=== PATIENT | female | born 1960 | race Caucasian/White ===

== ENCOUNTER 2017-08-04 21:21 | Emergency (ER) | payer SELFPAY ==
[2017-08-04 21:28] VITALS: BP 169/96; PULSE 95; RESP 14; TEMP 36.7; O2SAT 100
--- NOTE | 2017-08-04 22:13 | PC.NURSE ---
States she was just sitting watching TV when her right upper arm started hurting
--- NOTE | 2017-08-04 22:58 | ED.UPPEXIN ---
HPI - Extremity Injury (Upper) General Chief Complaint: Extremity Injury, Upper Stated Complaint: RT SHOULDER PAIN, RADIATING DOWN TO LEG Time Seen by Provider: 08/04/17 22:58 Source: patient Mode of arrival: ambulatory Limitations: no limitations History of Present Illness HPI narrative: The patient developed atraumatic right shoulder pain at home prior to arrival. She was sitting watching TV when the pain started. The pain initially occurred in the right anterior shoulder, shooting down the right arm. She has no prior issues of trauma with the right arm right shoulder. She has no prior symptoms suggestive of carpal tunnel syndrome. She has experienced weakness in the right hand recently, almost dropping a coffee cup a few days ago. She is right-hand dominant. She has no difficulty writing. There is no confusion, visual changes or facial droop. She has no right leg weakness. She has pain, and weakness but not numbness in the right arm. Related Data Previous Rx's Medication Instructions Recorded prednisone 60 mg PO DAILY #15 tab 08/05/17 Allergies Allergy/AdvReac Type Severity Reaction Status Date / Time No Known Drug Allergies Allergy Verified 08/04/17 21:31 Review of Systems Review of Systems All systems reviewed & are unremarkable except as noted in HPI and below ENT Ears, Nose, Mouth, and Throat: Denies change in voice, Denies neck pain and Denies sore throat Cardiovascular Denies chest pain, Denies irregular heart rhythm, Denies lightheadedness, Denies palpitations, Denies dyspnea, Denies dyspnea on exertion and Denies orthopnea Respiratory Denies cough, Denies dyspnea, Denies dyspnea on exertion and Denies wheezing Musculoskeletal Reports system reviewed and no additional complaints, except as docu, Reports as per HPI and Denies neck pain Integumentary/Breasts Denies pruritus, Denies erythema, Denies rash and Denies wounds Endocrine Denies palpitations Allergic/Immunologic Denies wheezing [facility] Surgical History Status post tubal ligation (05/12/94) Social History Smoking Status: Former smoker Exam Initial Vital Signs Initial Vital Signs: Vital Signs Temperature 98.1 F 08/04/17 21:28 Pulse Rate 95 H 08/04/17 21:28 Respiratory Rate 14 08/04/17 21:28 Blood Pressure 169/96 H 08/04/17 21:28 Pulse Oximetry 100 08/04/17 21:28 Const General: healthy appearing, comfortable, well developed and well groomed [facility] Head: normocephalic and atraumatic Eyes Pupils: PERRL EOM: EOM intact bilaterally Neck Neck: normal visual inspection, full ROM and other (No palpable cervical spine tenderness.) Resp Auscultation: clear to auscultation bilaterally Cardio Rate: regular rate Rhythm: regular rhythm Heart Sounds: S1 normal, S2 normal and no murmurs Back/Spine/Pelvis Thoracic/Lumbar Spine: thoracic and lumbar spine normal to inspection, No thoracic spinal tenderness and No lumbar spinal tenderness Skin General: no rashes or lesions noted Neuro General: alert, awake and oriented x3 Motor: other (Strength 5/5 in the left arm. Strength is 4/5 in the right wrist and right hand.) Sensory Exam: no sensory deficits noted Extrem Right upper extremity: normal to inspection, full ROM, normal capillary refill, no joint enlargement and shoulder/upper arm Details: normal ROM; no tenderness and no swelling Course Hospital Course: Back exam there is no functional abnormality in the right shoulder. She does have decreased right hand and right wrist strength. Evaluation is highly suggestive of a neuropathy. She was initially treated with Motrin and prednisone. Orders Ordered: ED Orders 08/04/17 23:04 XR shoulder RT min 2V Stat Discontinued Medications Ibuprofen (Advil) 800 mg PO NOW ONE Stop: 08/04/17 23:41 Last Admin: 08/04/17 23:47 Dose: 800 mg Prednisone (Deltasone) 60 mg PO NOW ONE Stop: 08/04/17 23:41 Last Admin: 08/04/17 23:47 Dose: 60 mg Vital Signs - 8 hr 08/04/17 21:28 08/05/17 00:15 Temperature 98.1 F Pulse Rate 95 H 87 Respiratory Rate 14 18 Blood Pressure 169/96 H 145/93 H Pulse Oximetry 100 100 MDM - Extremity Injury (Upper) Imaging Data Right shoulder: Attestation: I personally reviewed and interpreted this imaging study as follows: My impression: Right shoulder x-ray is normal. Discharge Plan Departure Patient Disposition: Home, Self-Care Clinical Impression: Radiculopathy of arm Discharge Date/Time: 08/05/17 00:17 Interventions: ED Discharge Assessment Last Done: 08/05/17 00:15 Instructions: DI for Cervical Radiculopathy Activity Restrictions/Additional Instructions: Prednisone 60 mg daily for 5 days. Advil 3 tablets every 6 hr as needed for pain. Establish care with a local physician, if symptoms persist you will need nerve conduction studies. These will have to be scheduled with an office that has this capability. Return to the ER as needed. Prescriptions: New prednisone 20 mg tablet 60 mg PO DAILY Qty: 15 RF: 0
--- NOTE | 2017-08-04 23:04 | DI.RAD.S_ITS ---
PROCEDURE: XR SHOULDER RT MIN 2V INDICATIONS: Atraumatic right shoulder pain TECHNIQUE: 3 views of the shoulder were acquired. COMPARISON: None. FINDINGS: Bones: No fractures or dislocations. No suspicious bony lesions. Visualized ribs appear intact. Glenohumeral and acromioclavicular joint degenerative change. Soft tissues: No suspicious soft tissue calcifications. IMPRESSION: No acute fractures or dislocations. Dictated by: Stephan Serna M.D. on 08/05/2017 at 8:11 Approved by: Stephan Serna M.D. on 08/05/2017 at 8:16
[2017-08-04] MEDS: IBUPROFEN 400 MG TABLET 800 MG PO (23:47)
[2017-08-04] MEDS: predniSONE 20 MG TABLET 60 MG PO (23:47)
[2017-08-05 00:15] VITALS: BP 145/93; PULSE 87; RESP 18; O2SAT 100
== END 2017-08-05 00:17 | disposition home or self-care (01) ==
PROVIDERS: Emergency Provider Emergency Medicine
DX: M54.10 Radiculopathy, site unspecified (principal)
CPT/HCPCS: 73030; 99282; 99283

== ENCOUNTER 2017-08-26 12:08 | Emergency (ER) | payer SELFPAY ==
[2017-08-26 12:10] VITALS: BP 146/87; PULSE 77; RESP 18; TEMP 36.6; O2SAT 99; BMI 31.2
--- NOTE | 2017-08-26 12:29 | ED_ITS ---
HPI - Chest Pain <WILLIAM Pagan - Last Filed: 08/26/17 22:04> General Chief Complaint: Chest Pain Stated Complaint: pressure in chest, weakness Time Seen by Provider: 08/26/17 12:28 Source: patient History of Present Illness HPI narrative: 57-year-old female here for complaint of having cough and chest pressure for the past couple weeks. She reports that she has had a productive cough. She denies any fevers. She states that her symptoms started 2 weeks ago started to get better and then worsened over the past few days. She denies any chest pain but just feels the pressure. She reports she has been coughing up green phlegm. Positive p.o. intake. She is able speak full sentences. No acute distress. She was able to ambulate into the emergency room. No nausea or vomiting Related Data Previous Rx's Medication Instructions Recorded doxycycline hyclate 100 mg PO BID #14 cap 08/26/17 Allergies Allergy/AdvReac Type Severity Reaction Status Date / Time No Known Drug Allergies Allergy Verified 08/26/17 12:50 Review of Systems <WILLIAM Pagan - Last Filed: 08/26/17 22:04> Constitutional Denies chills, Denies fatigue, Denies fever(s), Denies lethargy and Denies weakness Eyes Denies change in vision, Denies eye discharge, Denies irritation and Denies loss of vision ENT Ears, Nose, Mouth, and Throat: Denies change in voice, Denies neck pain, Denies sore throat and Denies throat swelling Cardiovascular Comments: Chest pressure Respiratory Reports chest congestion and Denies wheezing Gastrointestinal Gastrointestinal: Denies abdominal pain, Denies change in bowel habits, Denies diarrhea, Denies nausea and Denies vomiting Genitourinary Denies hematuria, Denies flank pain, Denies urinary incontinence and Denies urinary urgency Musculoskeletal Denies neck pain Integumentary/Breasts Denies pruritus, Denies erythema, Denies rash and Denies wounds Neurologic Denies confusion, Denies loss of vision and Denies weakness Psychiatric Denies anxiety, Denies confusion, Denies depression, Denies homicidal ideation and Denies suicidal ideation Endocrine Denies fatigue and Denies flushing Hematologic/Lymphatic Denies easy bruising Allergic/Immunologic Denies urticaria, Denies throat swelling and Denies wheezing Exam <WILLIAM Pagan Last Filed: 08/26/17 22:04> Initial Vital Signs Initial Vital Signs: Vital Signs Temperature 97.9 F 08/26/17 12:10 Pulse Rate 77 08/26/17 12:10 Respiratory Rate 18 08/26/17 12:10 Blood Pressure 146/87 H 08/26/17 12:10 Pulse Oximetry 99 08/26/17 12:10 Const General: cooperative and well developed Nutritional Appearance: well nourished Orientation: alert, awake, oriented x3 and not confused HENKS Mouth: oral mucosae normal, oropharynx normal and moist mucous membranes Eyes Conjunctivae: conjunctivae normal Sclera: sclerae normal Pupils: PERRL EOM: EOM intact bilaterally Chest Chest: normal inspection of the chest Resp Effort & Inspection: normal respiratory effort, able to speak in complete sentences, no respiratory distress and no use of accessory muscles Auscultation: clear to auscultation bilaterally, no rales, no rhonchi and no wheezes Cardio Rate: regular rate Rhythm: regular rhythm Heart Sounds: no click, no gallops, no murmurs and no rubs Skin General: no rashes or lesions noted, No jaundice and No petechiae Neuro General: alert, oriented x3, gait normal and no focal motor deficits Speech: speech normal Extrem Right lower extremity: normal to inspection; no edema Left lower extremity: normal to inspection; no edema <Isabelle Coleman DO - Last Filed: 08/27/17 12:26> Initial Vital Signs Initial Vital Signs: Vital Signs Temperature 97.9 F 08/26/17 12:10 Pulse Rate 77 08/26/17 12:10 Respiratory Rate 18 08/26/17 12:10 Blood Pressure 146/87 H 08/26/17 12:10 Pulse Oximetry 99 08/26/17 12:10 Course <WILLIAM Pagan - Last Filed: 08/26/17 22:04> Orders Ordered: Discontinued Medications Sodium Chloride (Normal Saline 0.9%) 1,000 mls @ 150 mls/hr IV CONT ERICKSON Last Infusion: 08/26/17 14:44 Dose: 0 mls/hr Admin: 08/26/17 13:09 Dose: 150 mls/hr Vital Signs - 8 hr 08/26/17 14:05 08/26/17 14:43 08/26/17 14:45 Pulse Rate 74 77 74 Respiratory Rate 11 L 11 L 14 Blood Pressure 105/85 H Blood Pressure [Right Arm] 139/82 H 105/85 H Pulse Oximetry 98 96 100 <Isabelle Coleman DO - Last Filed: 08/27/17 12:26> Orders Ordered: Discontinued Medications Sodium Chloride (Normal Saline 0.9%) 1,000 mls @ 150 mls/hr IV CONT ERICKSON Last Infusion: 08/26/17 14:44 Dose: 0 mls/hr Admin: 08/26/17 13:09 Dose: 150 mls/hr Vital Signs - 8 hr 08/26/17 14:05 08/26/17 14:43 08/26/17 14:45 Pulse Rate 74 77 74 Respiratory Rate 11 L 11 L 14 Blood Pressure 105/85 H Blood Pressure [Right Arm] 139/82 H 105/85 H Pulse Oximetry 98 96 100 MDM - Chest Pain <WILLIAM Pagan - Last Filed: 08/26/17 22:04> Lab Data Result diagrams: 08/26/17 13:00 08/26/17 13:00 Lab Results 08/26/17 08/26/17 Range/Units 13:00 13:00 WBC 7.2 (4.5-11.0) X10^3/uL RBC 4.81 (4.0-5.2) X10^6/uL Hgb 14.7 (12.0-16.0) g/dL Hct 42.6 (36-46) % MCV 88.6 (80-100) fL MCH 30.6 (26-34) PG MCHC 34.5 (30-36) % RDW 12.2 (11.6-14.8) % Plt Count 292 (150-400) X10^3/uL Neut % (Auto) 54.2 (50-75) % Lymph % (Auto) 31.8 (25-40) % Quay % (Auto) 6.5 (3-14) % Eos % (Auto) 5.2 H (2-4) % Baso % (Auto) 2.3 H (0-2) % Neut # (Auto) 3900 (6832-7156) /uL Sodium 136 L (137-145) mmol/L Potassium 4.1 (3.4-5.1) mmol/L Chloride 98 (98-107) mmol/L Carbon Dioxide 29 (22-32) mmol/L BUN 12 (7-17) mg/dL Creatinine 0.50 L (0.52-1.04) mg/dL Estimated GFR > 60.0 (>60) mL/min BUN/Creatinine Ratio 24.0 H (6-22) Glucose 355 H (70-100) mg/dL Calcium 9.2 (8.4-10.2) mg/dL Total Bilirubin 0.5 (0.2-1.3) mg/dL AST 20 (14-36) IU/L ALT 24 (9-52) IU/L Alkaline Phosphatase 118 (38-126) U/L Total Creatine Kinase 78 (30-135) U/L Troponin I < 0.012 (0.01-0.034) ng/mL Total Protein 7.3 (6.3-8.2) g/dL Albumin 3.9 (3.5-5.0) g/dL Globulin 3.4 (1.7-4.1) g/dL Albumin/Globulin Ratio 1.1 (1.0-2.8) Imaging Data Chest x-ray: Radiologist's impression: PROCEDURE: XR CHEST 1V INDICATIONS: Chest pressure and cough TECHNIQUE: One view of the chest was acquired. COMPARISON: [facility], CHEST 2 VIEW, 06/23/2006, 17:48. FINDINGS: Surgical changes and devices: None. Lungs and pleura: No pleural effusions or pneumothorax. Lungs are clear. Mediastinum: Mediastinal contours appear normal. Heart size is normal. Bones and chest wall: No suspicious bony lesions. Overlying soft tissues appear unremarkable. IMPRESSION: No acute pulmonary process. Dictated by: Elizabeth Castorena M.D. on 08/26/2017 at 13:28 Approved by: Elizabeth Castorena M.D. on 08/26/2017 at 13:28 ECG Data Interpretation: EKG shows normal sinus rhythm no ST elevation or depression. No ectopy. Ventricular rate is 75. Pr interval 147. QRS duration 98. QTC 392 MDM Narrative Medical decision making narrative: EKG shows sinus rhythm with no ST elevation or depression. Chest x-ray was negative for any acute findings. CBC was obtained was unremarkable. CMP was obtained and shows elevated blood sugar at 355. Cardiac enzymes were obtained and were negative. Patient states she has a history of having a diabetes when she was and was told by her primary care provider years ago that she was possibly type 2 diabetic she does not take any diabetic medications at this time. Due to length of symptoms of having productive cough will treat empirically for walking pneumonia with doxycycline. She is encouraged to follow up with primary care next week for further evaluation and stabbing shooting type 2 diabetes care. For any worsening symptoms return to the emergency room. <Isabelle Coleman, DO - Last Filed: 08/27/17 12:26> Lab Data Lab Results 08/26/17 08/26/17 Range/Units 13:00 13:00 WBC 7.2 (4.5-11.0) X10^3/uL RBC 4.81 (4.0-5.2) X10^6/uL Hgb 14.7 (12.0-16.0) g/dL Hct 42.6 (36-46) % MCV 88.6 (80-100) fL MCH 30.6 (26-34) PG MCHC 34.5 (30-36) % RDW 12.2 (11.6-14.8) % Plt Count 292 (150-400) X10^3/uL Neut % (Auto) 54.2 (50-75) % Lymph % (Auto) 31.8 (25-40) % Quay % (Auto) 6.5 (3-14) % Eos % (Auto) 5.2 H (2-4) % Baso % (Auto) 2.3 H (0-2) % Neut # (Auto) 3900 (4041-7414) /uL Sodium 136 L (137-145) mmol/L Potassium 4.1 (3.4-5.1) mmol/L Chloride 98 (98-107) mmol/L Carbon Dioxide 29 (22-32) mmol/L BUN 12 (7-17) mg/dL Creatinine 0.50 L (0.52-1.04) mg/dL Estimated GFR > 60.0 (>60) mL/min BUN/Creatinine Ratio 24.0 H (6-22) Glucose 355 H (70-100) mg/dL Calcium 9.2 (8.4-10.2) mg/dL Total Bilirubin 0.5 (0.2-1.3) mg/dL AST 20 (14-36) IU/L ALT 24 (9-52) IU/L Alkaline Phosphatase 118 (38-126) U/L Total Creatine Kinase 78 (30-135) U/L Troponin I < 0.012 (0.01-0.034) ng/mL Total Protein 7.3 (6.3-8.2) g/dL Albumin 3.9 (3.5-5.0) g/dL Globulin 3.4 (1.7-4.1) g/dL Albumin/Globulin Ratio 1.1 (1.0-2.8) ECG Data Attestation: I personally reviewed and interpreted this ECG as follows: Prior ECG tracings: available for review Interpretation: Sinus rhythm rate 75 Q-waves noted in inferior leads no prior to compare no acute ST changes normal interval Discharge Plan Departure Patient Disposition: Home, Self-Care Clinical Impression: Cough, Elevated blood sugar level Discharge Date/Time: 08/26/17 14:46 Interventions: ED Discharge Assessment Last Done: 08/26/17 14:45 Instructions: Atypical Pneumonia Activity Restrictions/Additional Instructions: Laboratory results show elevated blood sugar today indicating diabetes. Otherwise laboratory results were unremarkable. EKG and chest x-ray were negative. Will treat for atypical pneumonia with an antibiotic called doxycycline use as directed. Plenty of fluids and rest. [id number] Tylenol Motrin as needed for any discomfort. Follow up with primary care provider next week for re-evaluation and establishment of care for type 2 diabetes. For any worsening symptoms return to the emergency room. Prescription electronically sent to [facility] Prescriptions: New doxycycline hyclate 100 mg capsule 100 mg PO BID Qty: 14 RF: 0 Referrals: [facility] [Provider Group] Stand Alone Forms: Work/School Restrictions <Isabelle Coleman DO - Last Filed: 08/27/17 12:26> Cosign ED Attending Andrzej Attestation: I was immediately available in the department for consultation. Documentation has been reviewed. I agree with assessment and plan.
--- NOTE | 2017-08-26 12:36 | DI.RAD.S_ITS ---
PROCEDURE: XR CHEST 1V INDICATIONS: Chest pressure and cough TECHNIQUE: One view of the chest was acquired. COMPARISON: [facility], , CHEST 2 VIEW, 06/23/2006, 17:48. FINDINGS: Surgical changes and devices: None. Lungs and pleura: No pleural effusions or pneumothorax. Lungs are clear. Mediastinum: Mediastinal contours appear normal. Heart size is normal. Bones and chest wall: No suspicious bony lesions. Overlying soft tissues appear unremarkable. IMPRESSION: No acute pulmonary process. Dictated by: Elizabeth Castorena M.D. on 08/26/2017 at 13:28 Approved by: Elizabeth Castorena M.D. on 08/26/2017 at 13:28
[2017-08-26 13:06] VITALS: BP 140/87; PULSE 73; RESP 15; O2SAT 97
[2017-08-26] MEDS: SODIUM CHLORIDE 0.9% 1,000 ML 150 ML IV (13:09)
[2017-08-26 13:12] LABS: Add Manual Diff / Slide Review NO; Basophils Percent Auto 2.3 % (0-2); Eosinophils Percent Auto 5.2 % (2-4); Hematocrit 42.6 % (36-46); Hemoglobin 14.7 g/dL (12.0-16.0); Lymphocytes Percent Auto 31.8 % (25-40); Mean Corpuscular HGB Conc 34.5 % (30-36); Mean Corpuscular Hemoglobin 30.6 PG (26-34); Mean Corpuscular Volume 88.6 fL (80-100); Monocytes Percent Auto 6.5 % (3-14); Neutrophils Absolute Auto 3900 /uL (3000-5900); Neutrophils Percent Auto 54.2 % (50-75); Platelet Count 292 X10^3/uL (150-400); Red Blood Cell Count 4.81 X10^6/uL (4.0-5.2); Red Cell Distribution Width 12.2 % (11.6-14.8); White Blood Cell Count 7.2 X10^3/uL (4.5-11.0)
[2017-08-26 13:29] LABS: Alanine Aminotransferase 24 IU/L (9-52); Albumin 3.9 g/dL (3.5-5.0); Albumin Globulin Ratio 1.1 (1.0-2.8); Alkaline Phosphatase 118 U/L (38-126); Aspartate Aminotransferase 20 IU/L (14-36); Bilirubin Total 0.5 mg/dL (0.2-1.3); Blood Urea Nitrogen 12 mg/dL (7-17); Calcium 9.2 mg/dL (8.4-10.2); Carbon Dioxide 29 mmol/L (22-32); Chloride 98 mmol/L (98-107); Creatine Kinase 78 U/L (30-135); Estimated Glomerular Filt Rate > 60.0 mL/min (>60); Globulin 3.4 g/dL (1.7-4.1); Glucose 355 mg/dL (70-100); HEMOLYSIS 19 (0-50); Potassium 4.1 mmol/L (3.4-5.1); Sodium 136 mmol/L (137-145); Total Protein 7.3 g/dL (6.3-8.2)
[2017-08-26 13:30] VITALS: BP 149/86; PULSE 76; RESP 15; O2SAT 95
[2017-08-26 13:42] LABS: Troponin I < 0.012 ng/mL (0.01-0.034)
[2017-08-26 14:05] VITALS: BP 139/82; PULSE 74; RESP 11; O2SAT 98
[2017-08-26 14:43] VITALS: BP 105/85; PULSE 77; RESP 11; O2SAT 96
[2017-08-26 14:45] VITALS: BP 105/85; PULSE 74; RESP 14; O2SAT 100
== END 2017-08-26 14:46 | disposition home or self-care (01) ==
PROVIDERS: Emergency Provider Nurse Practitioner Family
DX: R05 Cough (principal); R73.9 Hyperglycemia, unspecified
CPT/HCPCS: 36591; 71045; 80053; 82550; 82553; 84484; 85025; 93005; 96360; 96361; 99283; 99285

== ENCOUNTER 2019-03-15 12:42 | Emergency (ER) | payer SELFPAY ==
[2019-03-15 12:46] VITALS: BP 160/98; PULSE 83; RESP 18; TEMP 36.7; O2SAT 100
[2019-03-15 13:09] VITALS: BP 148/82; PULSE 77; RESP 20; O2SAT 97
[2019-03-15] MEDS: SODIUM CHLORIDE 0.9% 1,000 ML 1000 ML IV (13:35)
[2019-03-15 13:39] LABS: Add Manual Diff / Slide Review NO; Basophils Absolute Auto 100 /uL (0-100); Basophils Percent Auto 1.4 % (0-2); Eosinophils Absolute Auto 300 /uL (0-450); Eosinophils Percent Auto 4.1 % (2-4); Hematocrit 41.9 % (36-46); Hemoglobin 14.7 g/dL (12.0-16.0); Lymphocytes Absolute Auto 2000 /uL (1100-4500); Lymphocytes Percent Auto 24.3 % (25-40); Mean Corpuscular HGB Conc 35.2 % (30-36); Mean Corpuscular Hemoglobin 30.5 PG (26-34); Mean Corpuscular Volume 86.7 fL (80-100); Monocytes Absolute Auto 400 /uL (0-900); Monocytes Percent Auto 5.4 % (3-14); Neutrophils Absolute Auto 5400 /uL (1500-7000); Neutrophils Percent Auto 64.8 % (50-75); Platelet Count 341 X10^3/uL (150-400); Red Blood Cell Count 4.83 X10^6/uL (4.0-5.2); Red Cell Distribution Width 12.4 % (11.6-14.8); White Blood Cell Count 8.3 X10^3/uL (4.5-11.0)
[2019-03-15 13:43] LABS: Prothrombin Time 11.7 SECONDS (10.1-12.7)
[2019-03-15 13:46] LABS: PTT Partial Thromboplastin Tim 31 SECONDS (26.4-36.2)
[2019-03-15 13:49] LABS: Creatine Kinase 77 U/L (30-135)
[2019-03-15 13:50] LABS: Alanine Aminotransferase 26 IU/L (<35); Albumin 4.4 g/dL (3.5-5.0); Albumin Globulin Ratio 1.2 (1.0-2.8); Alkaline Phosphatase 117 U/L (38-126); Aspartate Aminotransferase 33 IU/L (14-36); Bilirubin Total 0.7 mg/dL (0.2-1.3); Blood Urea Nitrogen 15 mg/dL (7-17); Calcium 9.7 mg/dL (8.4-10.2); Carbon Dioxide 28 mmol/L (22-32); Chloride 97 mmol/L (98-107); Estimated Glomerular Filt Rate > 60.0 mL/min (>60); Globulin 3.6 g/dL (1.7-4.1); Glucose 349 mg/dL (70-100); HEMOLYSIS 45 (0-50); Lipase 66 U/L (23-300); Potassium 4.1 mmol/L (3.4-5.1); Sodium 135 mmol/L (137-145)
[2019-03-15 14:01] LABS: Troponin I < 0.012 ng/mL (0.01-0.034)
[2019-03-15 14:36] LABS: RBC Urine None Seen (0-5/HPF)
[2019-03-15 14:44] LABS: Bacteria Urine Moderate (10-30); Culture Indicated Urine Specimen Cultured; Squamous Epithelial Cell Urine 0-1 /HPF (0-5/HPF); WBC Urine 5-10/HPF (0-5/HPF)
[2019-03-15 15:06] VITALS: BP 177/95; PULSE 75; RESP 11; O2SAT 97
[2019-03-15 15:07] LABS: Thyroid Stimulating Hormone 1.06 uIU/mL (0.47-4.68)
[2019-03-15 15:17] VITALS: BP 176/101; BP 177/100; BP 178/101; PULSE 77; PULSE 80; PULSE 82
[2019-03-15 16:03] VITALS: BP 160/96; PULSE 81; RESP 18
--- NOTE | 2019-03-15 16:04 | PC.NURSE ---
pt requesting to leave, dr Edwards is aware
[2019-03-15] MEDS: levoFLOXacin 250 MG TABLET 500 MG PO (16:11)
--- NOTE | 2019-03-15 22:22 | ED.WEAKNESS ---
HPI - Weakness General Chief complaint: Weakness Stated complaint: feeling off, fingers tingle, slight confusion Time Seen by Provider: 03/15/19 14:01 Source: patient Mode of arrival: Wheelchair History of Present Illness HPI Narrative: The patient is a 51-year-old female who presented to the emergency department with vague random complaints. She states that she woke up feeling fine and when she went to work she suddenly became dizzy lightheaded and felt almost like she might pass out without palpitations, or chest pain. She kept stating I just didn't feel right but couldn't define exactly what was wrong. She denied being dizzy or her balance being off. She denied absolutely any pain. She denied any headache chest pain. She denies any fever chills or sweats any numbness tingling loss of sensation paresthesias or anesthesia. She denied any change in vision loss of vision double vision. She does have some mild nasal drainage and sinus congestion without a sore throat. She has had no shortness of breath cough, abdominal pain, nausea vomiting diarrhea change in bowel habits. She denies any urinary symptoms. She denied being depressed and anxious. The patient when asked if she had lost weight stated that over the last 6 months she has lost weight without trying. She has difficulty sleeping at night. She states that her dress size 1 from 18-12. Related Data Previous Rx's Medication Instructions Recorded levofloxacin [Levaquin] 500 mg PO DAILY #7 tab 03/15/19 Allergies Allergy/AdvReac Type Severity Reaction Status Date / Time No Known Drug Allergies Allergy Verified 03/15/19 12:49 Review of Systems Review of Systems Narrative: All review of systems were negative except for those mentioned in history of present illness. Patient History Surgical History (Updated 03/15/19 @ 22:34 by Fracisco Edwards MD) History of tonsillectomy and adenoidectomy (Acute) Status post tubal ligation (05/12/94) Social History (Updated 03/15/19 @ 22:30 by Fracisco Edwards MD) other: Former smoker, does not drink alcohol or use any drugs Smoking Status: Former smoker Smoking Status: Former smoker alcohol intake frequency: 0-2 drinks per day Substance Use Type: does not use Exam Narrative Exam Narrative: PHYSICAL EXAM: CONSTITUTIONAL: Awake, blunted flat affect in NAD. Does not appear toxic or ill. The patient actually appears depressed. HEAD: AT/NC EENT: PERRL, FROM of eyes, no discharge, no nystagmus No epistaxis or nasal drainage Oral mucosa is moist and pink, posterior pharynx is without erythema or exudate. NECK: Supple, no obvious JVD, Trachea is midline without stridor, no palpable LN or masses. SPINE: No gross deformity, no palpable tenderness of the cervical, thoracic, lumbar or sacral spine. No CVA tenderness. THORAX: No deformity, retractions, chest wall tenderness, subcutaneous air or crepitice. LUNGS: Clear with symmetrical breath sounds without respiratory distress HEART: Normal heart tones, regular rhythm and rate without murmur. ABDOMEN: Soft, non-tender, normal bowel sounds without guarding, rebound, rigidity or palpable mass or organomegaly. EXTREMITIES: No edema, cyanosis, deformity or tenderness. SKIN: No rash, bruising, petechiae or purpura. NEURO: Awake, alert, oriented, conversive, cranial nerves II-XII are symmetrical and normal, moves all 4 extremities and is ambulatory Initial Vital Signs Initial Vital Signs: Vital Signs Temperature 98.1 F 03/15/19 12:46 Pulse Rate 83 03/15/19 12:46 Respiratory Rate 18 03/15/19 12:46 Blood Pressure 160/98 H 03/15/19 12:46 Pulse Oximetry 100 03/15/19 12:46 Course Orders Ordered: ED Orders 03/15/19 14:35 Urine Culture Stat Urine Microscopic Stat Discontinued Medications Sodium Chloride (Normal Saline 0.9%) 1,000 mls @ 1,000 mls/hr IV BOLUS ONE Stop: 03/15/19 14:30 Last Infusion: 03/15/19 15:20 Dose: 0 mls/hr Documented by: Admin: 03/15/19 13:35 Dose: 1,000 mls/hr Documented by: TULIO Sodium Chloride (Normal Saline 0.9%) 1,000 mls @ 150 mls/hr IV CONT ERICKSON Last Admin: 03/15/19 15:21 Dose: Not Given Documented by: TULIO Levofloxacin (Levaquin) 500 mg PO NOW ONE Stop: 03/15/19 16:07 Last Admin: 03/15/19 16:11 Dose: 500 mg Documented by: TULIO Vital Signs Vital signs: Vital Signs - 8 hr 03/15/19 15:06 03/15/19 15:17 03/15/19 16:03 Pulse Rate 75 81 Pulse Rate [Orthostatic Lying] 80 Pulse Rate [Orthostatic Sitting] 77 Pulse Rate [Orthostatic Standing] 82 Respiratory Rate 11 L 18 Blood Pressure [Left Arm] 177/95 H 160/96 H Blood Pressure [Orthostatic Lying] 176/101 H Blood Pressure [Orthostatic Sitting] 177/100 H Blood Pressure [Orthostatic Standing] 178/101 H Pulse Oximetry 97 MDM - Weakness Medical Records Attestation: I reviewed the patient's medical records. Lab Data Attestation: I reviewed the patient's lab results. Result diagrams: 03/15/19 13:28 03/15/19 13:28 Labs: Lab Results 03/15/19 03/15/19 03/15/19 Range/Units 13:28 13:28 13:28 WBC 8.3 (4.5-11.0) X10^3/uL RBC 4.83 (4.0-5.2) X10^6/uL Hgb 14.7 (12.0-16.0) g/dL Hct 41.9 (36-46) % MCV 86.7 (80-100) fL MCH 30.5 (26-34) PG MCHC 35.2 (30-36) % RDW 12.4 (11.6-14.8) % Plt Count 341 (150-400) X10^3/uL Neut % (Auto) 64.8 (50-75) % Lymph % (Auto) 24.3 L (25-40) % [place] % (Auto) 5.4 (3-14) % Eos % (Auto) 4.1 H (2-4) % Baso % (Auto) 1.4 (0-2) % Neut # (Auto) 5400 (4674-1134) /uL Lymph # (Auto) 2000 (7805-2272) /uL [place] # (Auto) 400 (0-900) /uL Eos # (Auto) 300 (0-450) /uL Baso # (Auto) 100 (0-100) /uL PT 11.7 (10.1-12.7) SECONDS INR 1.0 (0.9-1.3) APTT 31 (26.4-36.2) SECONDS Sodium 135 L (137-145) mmol/L Potassium 4.1 (3.4-5.1) mmol/L Chloride 97 L (98-107) mmol/L Carbon Dioxide 28 (22-32) mmol/L BUN 15 (7-17) mg/dL Creatinine 0.60 (0.52-1.04) mg/dL Estimated GFR > 60.0 (>60) mL/min BUN/Creatinine Ratio 25.0 H (6-22) Glucose 349 H (70-100) mg/dL Calcium 9.7 (8.4-10.2) mg/dL Total Bilirubin 0.7 (0.2-1.3) mg/dL AST 33 (14-36) IU/L ALT 26 (<35) IU/L Alkaline Phosphatase 117 (38-126) U/L Total Creatine Kinase (30-135) U/L CK-MB (CK-2) CK-MB (CK-2) Rel Index Troponin I (0.01-0.034) ng/mL Total Protein 8.0 (6.3-8.2) g/dL Albumin 4.4 (3.5-5.0) g/dL Globulin 3.6 (1.7-4.1) g/dL Albumin/Globulin Ratio 1.2 (1.0-2.8) Lipase 66 (23-300) U/L TSH (0.47-4.68) uIU/mL Urine RBC (0-5/HPF) Urine WBC (0-5/HPF) Ur Squamous Epith Cells (0-5/HPF) Urine Bacteria (None) Ur Culture Indicated? 03/15/19 03/15/19 03/15/19 Range/Units 13:28 13:28 14:35 WBC (4.5-11.0) X10^3/uL RBC (4.0-5.2) X10^6/uL Hgb (12.0-16.0) g/dL Hct (36-46) % MCV (80-100) fL MCH (26-34) PG MCHC (30-36) % RDW (11.6-14.8) % Plt Count (150-400) X10^3/uL Neut % (Auto) (50-75) % Lymph % (Auto) (25-40) % [place] % (Auto) (3-14) % Eos % (Auto) (2-4) % Baso % (Auto) (0-2) % Neut # (Auto) (3374-8946) /uL Lymph # (Auto) (1770-0018) /uL [place] # (Auto) (0-900) /uL Eos # (Auto) (0-450) /uL Baso # (Auto) (0-100) /uL PT (10.1-12.7) SECONDS INR (0.9-1.3) APTT (26.4-36.2) SECONDS Sodium (137-145) mmol/L Potassium (3.4-5.1) mmol/L Chloride (98-107) mmol/L Carbon Dioxide (22-32) mmol/L BUN (7-17) mg/dL Creatinine (0.52-1.04) mg/dL Estimated GFR (>60) mL/min BUN/Creatinine Ratio (6-22) Glucose (70-100) mg/dL Calcium (8.4-10.2) mg/dL Total Bilirubin (0.2-1.3) mg/dL AST (14-36) IU/L ALT (<35) IU/L Alkaline Phosphatase (38-126) U/L Total Creatine Kinase 77 (30-135) U/L CK-MB (CK-2) TNP CK-MB (CK-2) Rel Index TNP Troponin I < 0.012 (0.01-0.034) ng/mL Total Protein (6.3-8.2) g/dL Albumin (3.5-5.0) g/dL Globulin (1.7-4.1) g/dL Albumin/Globulin Ratio (1.0-2.8) Lipase (23-300) U/L TSH 1.06 (0.47-4.68) uIU/mL Urine RBC None seen (0-5/HPF) Urine WBC 5-10/hpf H (0-5/HPF) Ur Squamous Epith Cells 0-1 /hpf (0-5/HPF) Urine Bacteria Moderate (10-30) H (None) Ur Culture Indicated? Specimen cultured Urine Dip Bedside Urine Glucose 1000 mg/dl Bedside Urine Bilirubin - Negative Bedside Urine Ketone - Negative Urine Specific [place] 1.025 Bedside Urine Occult Blood +/- Bedside Urine pH 5.0 Bedside Urine Protein +/- 15 Bedside Urine Urobilinogen - Negative Bedside Urine Nitrite - Negative Bedside Urine Leukocytes - Negative Esterase ECG Data Attestation: I personally reviewed and interpreted this ECG as follows: Interpretation: The patient's EKG obtained on March 15 2019 at 13:4 7:11 a.m. reveals a sinus rhythm with a ventricular rate of 76. Intervals are normal. QTC is 390 milliseconds. Left axis deviation. The patient has left ventricular hypertrophy by voltage criteria. She has Q-waves in leads III and AVF suggestive of an inferior wall OR age indeterminate. The patient has flattening of the T-waves in leads V5 V6 and aVL. There are no inverted T-waves or acute diagnostic ST segment changes. MDM Narrative Medical decision making narrative: The patient's EKG revealed no acute diagnostic abnormalities. The patient's troponins and chemistries were within normal limits. Her urinalysis however revealed minimal epithelial cells with urine white blood cells bearing 5-10 per high-power field urine bacteria positive and a urine culture pending. The patient was treated as though she had an acute urinary tract infection and was prescribed Levaquin 500 mg q.day for the next 7 days. She was advised to follow-up with her primary care physician and be re-evaluated in 48-72 hours. Discharge Plan Departure Patient Disposition: Home Clinical Impression: Fatigue associated with anemia, Weakness, Urinary tract infection, Hypertension Discharge Date/Time: 03/15/19 16:25 Instructions: DI for Dehydration -- Adult, DI for Urinary Tract Infection (UTI) Activity Restrictions/Additional Instructions: No restrictions. Follow up and be re-evaluated in the walk-in clinic in 48 hours. If you develop chest pain, shortness of breath, palpitations, progressive dizziness, fatigue, or pass out you need to return to the emergency department for re-evaluation. Prescriptions: New levofloxacin [Levaquin] 500 mg tablet 500 mg PO DAILY Qty: 7 RF: 0 Stand Alone Forms: Work Release Note
== END 2019-03-15 16:25 | disposition home or self-care (01) ==
PROVIDERS: Emergency Provider Emergency Medicine
DX: N39.0 Urinary tract infection, site not specified (principal); R53.83 Other fatigue; D64.9 Anemia, unspecified; R53.1 Weakness; I10 Essential (primary) hypertension
CPT/HCPCS: 36415; 80053; 81003; 81015; 82550; 83690; 84443; 84484; 85025; 85610; 85730; 87077; 87086; 87147; 93005; 93010; 96360; 96361; 99284

== ENCOUNTER 2020-06-30 09:57 | Emergency (ER) | payer SELFPAY ==
[2020-06-30 10:13] VITALS: BP 148/82; PULSE 92; RESP 18; TEMP 36.1; O2SAT 99; BMI 29.9
[2020-06-30 10:39] LABS: Add Manual Diff / Slide Review NO; Basophils Absolute Auto 100 /uL (0-100); Eosinophils Absolute Auto 300 /uL (0-450); Eosinophils Percent Auto 2.9 % (2-4); Hematocrit 44.5 % (36-46); Lymphocytes Absolute Auto 1400 /uL (1100-4500); Lymphocytes Percent Auto 14.1 % (25-40); Mean Corpuscular HGB Conc 33.7 % (30-36); Mean Corpuscular Hemoglobin 29.7 PG (26-34); Monocytes Absolute Auto 600 /uL (0-900); Monocytes Percent Auto 6.4 % (3-14); Neutrophils Absolute Auto 7500 /uL (1500-7000); Neutrophils Percent Auto 75.6 % (50-75); Platelet Count 312 X10^3/uL (150-400); Red Blood Cell Count 5.06 X10^6/uL (4.0-5.2); Red Cell Distribution Width 12.1 % (11.6-14.8); White Blood Cell Count 9.9 X10^3/uL (4.5-11.0)
[2020-06-30 10:47] LABS: INR 1.2 (0.9-1.3)
[2020-06-30 10:49] LABS: PTT Partial Thromboplastin Tim 32 SECONDS (26.4-36.2)
[2020-06-30 11:00] LABS: Alanine Aminotransferase 15 IU/L (<35); Albumin 3.8 g/dL (3.5-5.0); Alkaline Phosphatase 113 U/L (38-126); Aspartate Aminotransferase 22 IU/L (14-36); BUN Creatinine Ratio 26.7 (6-22); Bilirubin Total 0.6 mg/dL (0.2-1.3); Blood Urea Nitrogen 16 mg/dL (7-17); Calcium 9.6 mg/dL (8.4-10.2); Carbon Dioxide 31 mmol/L (22-32); Chloride 95 mmol/L (98-107); Estimated Glomerular Filt Rate > 60.0 mL/min (>60); Globulin 3.8 g/dL (1.7-4.1); Glucose 388 mg/dL (70-100); HEMOLYSIS < 15 (0-50); Lipase 53 U/L (23-300); Potassium 4.1 mmol/L (3.4-5.1); Sodium 133 mmol/L (137-145); Total Protein 7.6 g/dL (6.3-8.2)
--- NOTE | 2020-06-30 11:05 | ED_ITS ---
HPI - Abdominal Pain General Chief Complaint: Abdominal Pain Stated Complaint: blood in stool Time Seen by Provider: 06/30/20 10:06 Source: patient Mode of arrival: Family Vehicle Limitations: no limitations History of Present Illness HPI narrative: Patient is a 60-year-old female who has no past medical history presenting with left-sided lower back pain. She said she had some mild right- sided pain previously but this morning is definitely worse than the left. Does not radiate down her leg or around her abdomen. She feels nauseous but no vomiting. She thought that her stool was dark but not bright red. She denies taking as significant amount of ibuprofen or Pepto-Bismol. She has not had fever or chills. She has some mild lower abdominal discomfort. MD complaint: abdominal pain and flank pain Pain Consistency: constant Location: L flank Quality: aching Radiation: none Related Data Previous Rx's Medication Instructions Recorded levofloxacin [Levaquin] 500 mg PO DAILY #7 tab 03/15/19 cephalexin 500 mg PO TID 7 Days #21 cap 06/30/20 Allergies Allergy/AdvReac Type Severity Reaction Status Date / Time No Known Drug Allergies Allergy Verified 06/30/20 10:18 Review of Systems Review of Systems ROS Unobtainable: All systems reviewed & are unremarkable except as noted in HPI and below Constitutional Constitutional: Denies chills, Denies fever(s), Denies lethargy and Denies weakness ENT Ears, Nose, Mouth, and Throat: Denies change in voice, Denies neck pain and Denies sore throat Cardiovascular Cardiovascular: Denies chest pain, Denies syncope, Denies irregular heart rhythm, Denies lightheadedness, Denies palpitations and Denies orthopnea Gastrointestinal Gastrointestinal: Reports as per HPI Genitourinary Genitourinary: Denies urinary hesitancy, Denies urinary incontinence and Denies urinary urgency Genitourinary: Denies urinary incontinence, Denies urinary hesitancy and Denies urinary urgency Musculoskeletal Musculoskeletal: Reports back pain, Denies myalgias and Denies neck pain Integumentary/Breasts Skin/Breast: Denies pruritus, Denies erythema, Denies rash and Denies wounds Neurologic Neurologic: Denies abnormal movements, Denies syncope and Denies weakness Endocrine Endocrine: Denies palpitations Patient History Surgical History History of tonsillectomy and adenoidectomy Status post tubal ligation (05/12/94) Social History other: Former smoker, does not drink alcohol or use any drugs Smoking Status: Former smoker Smoking Status: Former smoker tobacco type: cigarettes alcohol intake frequency: 0-2 drinks per day Substance Use Type: does not use Exam Initial Vital Signs Initial Vital Signs: Vital Signs Temperature 96.9 F L 06/30/20 10:13 Pulse Rate 92 H 06/30/20 10:13 Respiratory Rate 18 06/30/20 10:13 Blood Pressure 148/82 H 06/30/20 10:13 Pulse Oximetry 99 06/30/20 10:13 GENERAL: Well-appearing, well-nourished and in no acute distress. HEENT: Head atraumatic,EOMI, pupils reactive, face symmetric, moist mucous membranes CARDIOVASCULAR: Regular rate and rhythm without murmurs, rubs or gallops. RESPIRATORY: Breath sounds equal bilaterally, no wheezes rales or rhonchi. ABDOMEN: Soft, nontender. Normoactive bowel sounds all 4 quadrants. No guarding or rebound. BACK: No vertebral tenderness : Mild left CVA tenderness EXTREMITIES: Normal range of motion, no clubbing or edema. Neurovascularly intact NEUROLOGICAL: Alert and oriented x4.Normal gait and speech. SKIN: Warm, dry, no laceration, no petechiae, no rashes or lesions. Course Orders Ordered: ED Orders 06/30/20 10:23 EKG-12 Lead Stat 06/30/20 10:30 Complete Blood Count AUTO DIFF Stat Comprehensive Metabolic Panel Stat Lipase Stat Partial Thromboplastin Time Stat Prothrombin Time INR Stat 06/30/20 11:00 Urine Culture Stat Urine Microscopic Stat 06/30/20 11:15 CT kidney ureter bladder (KUB) Stat Vital Signs Vital signs: Vital Signs - 8 hr 06/30/20 10:13 06/30/20 11:34 06/30/20 12:00 Temperature 96.9 F L Pulse Rate 92 H 92 H 89 Respiratory Rate 18 Blood Pressure 148/82 H Pulse Oximetry 99 98 97 06/30/20 12:02 Temperature Pulse Rate 91 H Respiratory Rate Blood Pressure Pulse Oximetry 96 MDM - Abdominal Pain Lab Data Attestation: I reviewed the patient's lab results. Result diagrams: 06/30/20 10:30 06/30/20 10:30 Labs: Lab Results 06/30/20 06/30/20 06/30/20 Range/Units 10:30 10:30 10:30 WBC 9.9 (4.5-11.0) X10^3/uL RBC 5.06 (4.0-5.2) X10^6/uL Hgb 15.0 (12.0-16.0) g/dL Hct 44.5 (36-46) % MCV 88.0 (80-100) fL MCH 29.7 (26-34) PG MCHC 33.7 (30-36) % RDW 12.1 (11.6-14.8) % Plt Count 312 (150-400) X10^3/uL Neut % (Auto) 75.6 H (50-75) % Lymph % (Auto) 14.1 L (25-40) % [place] % (Auto) 6.4 (3-14) % Eos % (Auto) 2.9 (2-4) % Baso % (Auto) 1.0 (0-2) % Neut # (Auto) 7500 H (4785-0330) /uL Lymph # (Auto) 1400 (7034-7551) /uL [place] # (Auto) 600 (0-900) /uL Eos # (Auto) 300 (0-450) /uL Baso # (Auto) 100 (0-100) /uL PT 13.0 H (10.1-12.7) SECONDS INR 1.2 (0.9-1.3) APTT 32 (26.4-36.2) SECONDS Sodium 133 L (137-145) mmol/L Potassium 4.1 (3.4-5.1) mmol/L Chloride 95 L (98-107) mmol/L Carbon Dioxide 31 (22-32) mmol/L BUN 16 (7-17) mg/dL Creatinine 0.60 (0.52-1.04) mg/dL Estimated GFR > 60.0 (>60) mL/min BUN/Creatinine Ratio 26.7 H (6-22) Glucose 388 H (70-100) mg/dL Calcium 9.6 (8.4-10.2) mg/dL Total Bilirubin 0.6 (0.2-1.3) mg/dL AST 22 (14-36) IU/L ALT 15 (<35) IU/L Alkaline Phosphatase 113 (38-126) U/L Total Protein 7.6 (6.3-8.2) g/dL Albumin 3.8 (3.5-5.0) g/dL Globulin 3.8 (1.7-4.1) g/dL Albumin/Globulin Ratio 1.0 (1.0-2.8) Lipase 53 (23-300) U/L Urine RBC (0-5/HPF) Urine WBC (0-5/HPF) Ur Squamous Epith Cells (0-5/HPF) Amorphous Sediment Urine Bacteria (None) Urine Mucus (Negative) Ur Culture Indicated? 06/30/20 Range/Units 11:00 WBC (4.5-11.0) X10^3/uL RBC (4.0-5.2) X10^6/uL Hgb (12.0-16.0) g/dL Hct (36-46) % MCV (80-100) fL MCH (26-34) PG MCHC (30-36) % RDW (11.6-14.8) % Plt Count (150-400) X10^3/uL Neut % (Auto) (50-75) % Lymph % (Auto) (25-40) % [place] % (Auto) (3-14) % Eos % (Auto) (2-4) % Baso % (Auto) (0-2) % Neut # (Auto) (4049-6598) /uL Lymph # (Auto) (9289-4387) /uL [place] # (Auto) (0-900) /uL Eos # (Auto) (0-450) /uL Baso # (Auto) (0-100) /uL PT (10.1-12.7) SECONDS INR (0.9-1.3) APTT (26.4-36.2) SECONDS Sodium (137-145) mmol/L Potassium (3.4-5.1) mmol/L Chloride (98-107) mmol/L Carbon Dioxide (22-32) mmol/L BUN (7-17) mg/dL Creatinine (0.52-1.04) mg/dL Estimated GFR (>60) mL/min BUN/Creatinine Ratio (6-22) Glucose (70-100) mg/dL Calcium (8.4-10.2) mg/dL Total Bilirubin (0.2-1.3) mg/dL AST (14-36) IU/L ALT (<35) IU/L Alkaline Phosphatase (38-126) U/L Total Protein (6.3-8.2) g/dL Albumin (3.5-5.0) g/dL Globulin (1.7-4.1) g/dL Albumin/Globulin Ratio (1.0-2.8) Lipase (23-300) U/L Urine RBC 5-10/hpf H (0-5/HPF) Urine WBC 30-100/hpf H (0-5/HPF) Ur Squamous Epith Cells 1-5 /hpf (0-5/HPF) Amorphous Sediment 1+ Urine Bacteria Many (>30) H (None) Urine Mucus 1+ H (Negative) Ur Culture Indicated? Specimen cultured Point of care testing: Urine Dip Bedside Urine Glucose 100 mg/dl Bedside Urine Bilirubin - Negative Bedside Urine Ketone +/- 5 Urine Specific [place] 1.025 Bedside Urine Occult Blood +++ Bedside Urine pH 6.0 Bedside Urine Protein + 30 Bedside Urine Urobilinogen - Negative Bedside Urine Nitrite + Positive Bedside Urine Leukocytes + [address] scan - abdomen/pelvis: Radiologist's Impression: PROCEDURE: CT KIDNEY URETER BLADDER (KUB) INDICATIONS: left flank pain TECHNIQUE: Noncontrast 5 mm thick sections acquired from the diaphragms to the symphysis. 5 mm thick coronal and sagittal reformats were then performed. For radiation dose reduction, the following was used: automated exposure control, adjustment of mA and/or kV according to patient size. COMPARISON: None. FINDINGS: Image quality: Excellent. Lung bases: Lung bases are clear. Heart size is normal. Urinary system: There is mild to moderate left hydroureter with adjacent periureteric fat stranding and lymphadenopathy (for example a prominent but not threshold enlarged lymph on series 2, image 36 in the left periaortic station). There is mild perinephric fat stranding on the left. No renal or ureteral calculus identified. There is a cyst in the anterior right kidney measuring 3.5 centimeters. Other solid organs: The unenhanced liver, spleen, gallbladder, and adrenal glands are normal. Pancreas is unremarkable. Peritoneum and bowel: No abnormally dilated or thickened loop of bowel. Sigmoid diverticulosis without findings of diverticulitis. Nodes and vessels: No retroperitoneal or mesenteric adenopathy by size criteria. Aorta and inferior vena cava are normal in caliber. Abdominal wall: No ventral hernias. Pelvis: No free pelvic fluid. No inguinal hernias or adenopathy. Bones: No suspicious bony lesions. No vertebral body compression fractures. IMPRESSION: Moderate left hydroureter with periureteric fat stranding and suspected left retroperitoneal lymphadenopathy. The findings could represent recent passage of a left ureteral calculus, although ascending urinary tract infection or ureteral neoplasm could cause a similar appearance. Diverticulosis without findings of diverticulitis. Dictated by: Miguel Angel Bolanos M.D. on 06/30/2020 at 11:40 MDM Narrative Medical decision making narrative: Patient is found have nitrates and blood in her urine she has guaiac-negative symptoms consistent with pyelonephritis. She does not appear septic. Pain is better after Toradol. Discharge Plan Departure Patient Disposition: Home Clinical Impression: UTI (urinary tract infection) Qualifiers: Urinary tract infection type: acute pyelonephritis Qualified Code(s): N10 - Acute pyelonephritis Instructions: Kidney Infection Activity Restrictions/Additional Instructions: *You have been diagnosed with kidney infection *What to do: At this time her back pain is likely from a kidney infection you do have bladder infection. *Continue to take medications as directed Tylenol 1000 mg every 6 hours if needed for [id number] pain Keflex 500 mg 3 times a day for 7 days--> SENT TO [facility] *Follow up with your primary care provider in 2-3 days *Return to ER if you should have increasing pain, fever, confusion or any new, worsening or concerning symptoms Prescriptions: New cephalexin 500 mg capsule 500 mg PO TID 7 Days Qty: 21 RF: 0 No Action levofloxacin [Levaquin] 500 mg tablet 500 mg PO DAILY Qty: 7 RF: 0 Stand Alone Forms: Work Release Note
--- NOTE | 2020-06-30 11:15 | DI.CT.S_ITS ---
PROCEDURE: CT KIDNEY URETER BLADDER (KUB) INDICATIONS: left flank pain TECHNIQUE: Noncontrast 5 mm thick sections acquired from the diaphragms to the symphysis. 5 mm thick coronal and sagittal reformats were then performed. For radiation dose reduction, the following was used: automated exposure control, adjustment of mA and/or kV according to patient size. COMPARISON: None. FINDINGS: Image quality: Excellent. Lung bases: Lung bases are clear. Heart size is normal. Urinary system: There is mild to moderate left hydroureter with adjacent periureteric fat stranding and lymphadenopathy (for example a prominent but not threshold enlarged lymph on series 2, image 36 in the left periaortic station). There is mild perinephric fat stranding on the left. No renal or ureteral calculus identified. There is a cyst in the anterior right kidney measuring 3.5 centimeters. Other solid organs: The unenhanced liver, spleen, gallbladder, and adrenal glands are normal. Pancreas is unremarkable. Peritoneum and bowel: No abnormally dilated or thickened loop of bowel. Sigmoid diverticulosis without findings of diverticulitis. Nodes and vessels: No retroperitoneal or mesenteric adenopathy by size criteria. Aorta and inferior vena cava are normal in caliber. Abdominal wall: No ventral hernias. Pelvis: No free pelvic fluid. No inguinal hernias or adenopathy. Bones: No suspicious bony lesions. No vertebral body compression fractures. IMPRESSION: Moderate left hydroureter with periureteric fat stranding and suspected left retroperitoneal lymphadenopathy. The findings could represent recent passage of a left ureteral calculus, although ascending urinary tract infection or ureteral neoplasm could cause a similar appearance. Diverticulosis without findings of diverticulitis. Dictated by: Miguel Angel Bolanos M.D. on 06/30/2020 at 11:40 Approved by: Miguel Angel Bolanos M.D. on 06/30/2020 at 11:46
[2020-06-30 11:34] VITALS: PULSE 92; O2SAT 98
[2020-06-30 11:42] LABS: Amorphous Sediment Urine 1+; Bacteria Urine Many (>30); Culture Indicated Urine Specimen Cultured; Mucus Urine 1+ (Negative); RBC Urine 5-10/HPF (0-5/HPF); Squamous Epithelial Cell Urine 1-5 /HPF (0-5/HPF); WBC Urine 30-100/HPF (0-5/HPF)
[2020-06-30 12:00] VITALS: PULSE 89; O2SAT 97
[2020-06-30 12:02] VITALS: PULSE 91; O2SAT 96
== END 2020-06-30 12:18 | disposition home or self-care (01) ==
PROVIDERS: Emergency Provider Emergency Medicine
DX: N39.0 Urinary tract infection, site not specified (principal); I10 Essential (primary) hypertension
CPT/HCPCS: 36415; 74176; 80053; 81003; 81015; 83690; 85025; 85610; 85730; 87077; 87086; 87147; 87186; 93005; 93010; 99283; 99284

== ENCOUNTER 2020-09-26 10:59 | Inpatient (IN) | payer OTHER, SELFPAY ==
[2020-09-26] VITALS (27 sets, daily range): BP systolic 97–178; BP diastolic 61–92; PULSE 107–138; RESP 22–50; TEMP 36.8–39.4; O2SAT 71–94; BMI 25.2
--- NOTE | 2020-09-26 | DI.RAD.S_ITS ---
PROCEDURE: XR CHEST FOR PICC 1V INDICATIONS: [facility] 08[facility]26/2017, 12:43. FINDINGS: PICC was placed by the intravenous therapy team from the right side. Fluoroscopic spot film demonstrates the tip of PICC projecting to the area of distal SVC. IMPRESSION: Tip of PICC projects to the area of distal SVC. Dictated by: Garrett Mendes M.D. on 09/26/2020 at 17:15 Approved by: Garrett Mendes M.D. on 09/26/2020 at 17:15
--- NOTE | 2020-09-26 11:20 | DI.RAD.S_ITS ---
PROCEDURE: XR CHEST 1V INDICATIONS: SHORTNESS OF BREATH, COVID+ TECHNIQUE: One view of the chest was acquired. COMPARISON: [facility], [facility], XR CHEST 1V, 08/26/2017, 12:43. [facility], [facility], CHEST 2 VIEW, 06/23/2006, 17:48. FINDINGS: Surgical changes and devices: None. Lungs and pleura: Lungs are except for a mild left mid and lower lung pneumonia pattern. No pleural effusions or pneumothorax. Mediastinum: Mediastinal contours appear normal. Heart size is normal. Bones and chest wall: No suspicious bony lesions. Overlying soft tissues appear unremarkable. IMPRESSION: Mild pneumonia pattern left mid and lower lung. Dictated by: Garrett Mendes M.D. on 09/26/2020 at 12:16 Approved by: Garrett Mendes M.D. on 09/26/2020 at 12:16
--- NOTE | 2020-09-26 11:32 | ED_ITS ---
HPI - SOB/Dyspnea General Chief Complaint: Shortness of Breath/Dyspnea Stated Complaint: covid+ Time Seen by Provider: 09/26/20 11:02 History of Present Illness HPI Narrative: 60F nonsmoker with history of diabetes and HTN, presents with her and is feeling very weak, short of breath over the past week or so. She is known positive for COVID-19 and 1st started developing symptoms on September 15. She was tested at an outside facility on the and is positive. She has had a headache and sore throat, significant shortness of breath and fatigue as well as nausea and poor appetite. She has become significantly weak and it took him quite amount of exertion to get her into the car to, be seen. Patient is a DNR/DNI Related Data Home Medications Medication Instructions Recorded Confirmed No Known Home Medications 09/26/20 09/26/20 Allergies Allergy/AdvReac Type Severity Reaction Status Date / Time No Known Drug Allergies Allergy Verified 09/26/20 11:47 Review of Systems Review of Systems Narrative: GENERAL: See HPI HEENT: Denies sinus pain, ear pain, sore throat, difficulty swallowing, dizziness. RESPIRATORY: See HPI CARDIOVASCULAR: See HPI GASTROINTESTINAL: Denies nausea, vomiting, abdominal pain, diarrhea, constipation, melena. : Denies dysuria, frequency, incontinence, hematuria, urinary retention. MUSCULOSKELETAL: denies weakness, joint pain, or bony pain SKIN: Denies rash, skin lesions, or other NEUROLOGIC: Denies weakness, headache, numbness, change in speech, confusion, seizures, incoordination. PSYCHIATRIC: No concerning psychosocial issues. 12 point review of systems is negative except for those stated above Patient History Surgical History History of tonsillectomy and adenoidectomy Status post tubal ligation (05/12/94) Social History household members: spouse and family other: Former smoker, does not drink alcohol or use any drugs Smoking Status: Former smoker Smoking Status: Former smoker tobacco type: cigarettes alcohol intake frequency: 0-2 drinks per day Substance Use Type: does not use Exam Narrative Exam Narrative: GENERAL: [60] year old patient appears stated age. Well- developed patient, in obvious distress HEAD: Atraumatic. Normocephalic. EYES: Pupils equal round and reactive. Extraocular motions intact. No scleral icterus. No injection or drainage. ENT: Dry mucous membranes Nose without bleeding, purulent drainage. Throat without erythema, tonsillar hypertrophy or exudate. Airway patent. NECK: Trachea midline. Non tender CARDIOVASCULAR: Regular rate and rhythm without murmurs, gallops, or rubs. RESPIRATORY: Shallow breaths, tachypnea, faint crackles GASTROINTESTINAL: Abdomen soft, non-tender, nondistended. EXTREMITIES: No edema or joint tenderness. BACK: Nontender without deformity or crepitance. No flank tenderness. SKIN: No rash or erythema of visible areas Initial Vital Signs Initial Vital Signs: Vital Signs Temperature 99.7 F H 09/26/20 11:00 Pulse Rate 119 H 09/26/20 11:00 Respiratory Rate 30 H 09/26/20 11:00 Blood Pressure 149/84 H 09/26/20 11:00 Pulse Oximetry 78 L 09/26/20 11:00 Course Course Course Narrative: patient clearly quite ill. She is quickly put on HFNC and demonstrates improvement in work of breathing, Spo2, and mentation. She mentates clearly and demonstrates capacity to make her own decisions when she states she does not wish to be intubated and is a DNR. Hospitalist notificed of this. Noted in nursing record as well Orders Ordered: ED Orders 09/26/20 11:19 EKG-12 Lead Stat 09/26/20 11:20 XR chest 1V Stat 09/26/20 11:26 Arterial Blood Gas Stat 09/26/20 11:30 C-Reactive Protein Quant Stat Complete Blood Count AUTO DIFF Stat Comprehensive Metabolic Panel Stat D Dimer Stat Ferritin Stat Hemoglobin A1C% w Est Avg Glu Stat Ketones (Beta-Hydroxybutyrate) Stat Lactate (Lactic Acid) Stat Lactate Dehydrogenase Stat NT-proBNP (BNP-Adult 18+) Stat Procalcitonin Stat Troponin & CK Cardiac Panel Stat 09/26/20 12:00 COVID19 - ADMIT (MEDICAL OFFICE RECEPTIONIST ASSISTANT swab/PCR) Stat 09/26/20 13:27 Blood Culture Stat Acetaminophen (Acetaminophen 325 Mg Tablet) 650 mg PO Q6HR PRN PRN Reason: Fever Dexamethasone (Dexamethasone 10 Mg/Ml Vial) 6 mg IV DAILY [facility] Dextrose (Dextrose 50 % In Water 25 Gm/50 Ml Syringe) 25 gm IV PRN PRN PRN Reason: Hypoglycemia Enoxaparin Sodium (Enoxaparin 80 Mg/0.8 Ml Syringe) 70 mg SUBCUT BID [facility] Remdesivir 100 mg/ Sodium (Chloride) 250 mls @ 250 mls/hr IV DAILY [facility] INSULIN DRIP PREMIX (Myxredlin Drip Premix) 100 unit in 100 mls @ 6 mls/hr IV T ITRATE ERICKSON; Protocol Last Titration: 09/26/20 14:19 Dose: 10.6 units/hr, 10.6 mls/hr Documented by: LIZBETH Cosigned by: DARIUSZ Admin: 09/26/20 14:15 Dose: 6 units/hr, 6 mls/hr Documented by: LIZBETH Cosigned by: DARIUSZ Potassium Chloride 40 meq/ (Sodium Chloride) 1,020 mls @ 125 mls/hr IV CONT ERICK[facility] Last Admin: 09/26/20 16:16 Dose: 200 mls/hr Documented by: LESTER Cosigned by: KALEBHISHOAIB Azithromycin 500 mg/ Dextrose 250 mls @ 250 mls/hr IV Q24H [facility] Meropenem 1 gm/ Sodium (Chloride) 100 mls @ 200 mls/hr IV Q8H [facility] Naloxone HCl (Naloxone 0.4 Mg/Ml Vial) 0.2 mg IV Q2MIN PRN PRN Reason: Opiate Reversal Pantoprazole Sodium (Pantoprazole 40 Mg Vial) 40 mg IV DAILY [facility] Last Admin: 09/26/20 14:13 Dose: 40 mg Documented by: LIZBETH Discontinued Medications Dexamethasone (Dexamethasone 10 Mg/Ml Vial) 6 mg IV NOW ONE Stop: 09/26/20 11:20 Last Admin: 09/26/20 11:39 Dose: 6 mg Documented by: MARY Enoxaparin Sodium (Enoxaparin 40 Mg/0.4 Ml Syringe) 40 mg SUBCUT BID [facility] Fluconazole (Fluconazole 150 Mg Tablet) 150 mg PO NOW ONE Stop: 09/26/20 14:44 Last Admin: 09/26/20 15:38 Dose: 150 mg Documented by: DARIUSZ Sodium Chloride (Normal Saline 0.9%) 1,000 mls @ 125 mls/hr IV CONT ERICKSON Last Infusion: 09/26/20 14:10 Dose: 125 mls/hr Documented by: Infusion: 09/26/20 13:27 Dose: 0 mls/hr Documented by: Admin: 09/26/20 11:39 Dose: 125 mls/hr Documented by: MARY Remdesivir 200 mg/ Sodium (Chloride) 250 mls @ 250 mls/hr IV NOW ONE Stop: 09/26/20 11:20 Last Infusion: 09/26/20 13:15 Dose: 0 mls/hr Documented by: Admin: 09/26/20 11:39 Dose: 250 mls/hr Documented by: MARY Sodium Chloride (Normal Saline 0.9%) 1,000 mls @ 1,000 mls/hr IV BOLUS ONE Stop: 09/26/20 13:15 Last Infusion: 09/26/20 14:22 Dose: 0 mls/hr Documented by: Infusion: 09/26/20 14:09 Dose: 1,000 mls/hr Documented by: Infusion: 09/26/20 13:28 Dose: 0 mls/hr Documented by: Admin: 09/26/20 12:32 Dose: 1,000 mls/hr Documented by: MARY Ceftriaxone Sodium 2,000 mg/ (Sodium Chloride) 100 mls @ 200 mls/hr IV NOW ONE Stop: 09/26/20 13:04 Last Infusion: 09/26/20 15:32 Dose: 0 mls/hr Documented by: Infusion: 09/26/20 14:10 Dose: 200 mls/hr Documented by: Infusion: 09/26/20 13:31 Dose: 0 mls/hr Documented by: Admin: 09/26/20 13:20 Dose: 200 mls/hr Documented by: MARY Azithromycin 500 mg/ Dextrose 250 mls @ 250 mls/hr IV NOW ONE Stop: 09/26/20 13:04 Last Infusion: 09/26/20 15:32 Dose: 0 mls/hr Documented by: Admin: 09/26/20 14:15 Dose: 250 mls/hr Documented by: LIZBETH Sodium Chloride (Normal Saline 0.9%) 1,000 mls @ 1,000 mls/hr IV BOLUS ONE Stop: 09/26/20 14:49 Last Infusion: 09/26/20 15:32 Dose: 0 mls/hr Documented by: Admin: 09/26/20 14:22 Dose: 1,000 mls/hr Documented by: LIZBETH Ceftriaxone Sodium 1,000 mg/ (Sodium Chloride) 100 mls @ 200 mls/hr IV Q24H [facility] Azithromycin 500 mg/ Dextrose 250 mls @ 250 mls/hr IV Q24H [facility] Meropenem 1 gm/ Sodium (Chloride) 100 mls @ 200 mls/hr IV Q12H [facility] Insulin Human Regular (Insulin Regular 100 Unit/Ml 3 Ml Vial) 10 unit IV NOW ONE Stop: 09/26/20 12:17 Last Admin: 09/26/20 12:32 Dose: 10 unit Documented by: MARY Cosigned by: SOBIA Vital Signs Vital signs: Vital Signs - 8 hr 09/26/20 11:00 09/26/20 11:13 09/26/20 11:30 Temperature 99.7 F H Pulse Rate 119 H 118 H 118 H Respiratory Rate 30 H Blood Pressure 149/84 H 149/84 H 161/82 H Pulse Oximetry 78 L 71 L 82 L 09/26/20 11:44 09/26/20 12:00 09/26/20 12:30 Temperature Pulse Rate 120 H 116 H 113 H Respiratory Rate 22 34 H 37 H Blood Pressure 161/82 H 153/87 H 178/88 H Pulse Oximetry 87 L 94 93 09/26/20 12:40 09/26/20 12:47 09/26/20 13:00 Temperature 100.1 F H 98.2 F Pulse Rate 107 H 111 H Respiratory Rate 31 H 39 H Blood Pressure 178/88 H 155/82 H Pulse Oximetry 93 90 L MDM - SOB/Dyspnea Lab Data Result diagrams: 09/26/20 11:30 09/26/20 15:18 Labs: Lab Results 09/26/20 09/26/20 09/26/20 Range/Units 11:26 11:30 11:30 WBC (4.5-11.0) X10^3/uL RBC (4.0-5.2) X10^6/uL Hgb (12.0-16.0) g/dL Hct (36-46) % MCV (80-100) fL MCH (26-34) PG MCHC (30-36) % RDW (11.6-14.8) % Plt Count (150-400) X10^3/uL Neut % (Auto) (50-75) % Lymph % (Auto) (25-40) % Vernon % (Auto) (3-14) % Eos % (Auto) (2-4) % Baso % (Auto) (0-2) % Neut # (Auto) (1481-2895) /uL Lymph # (Auto) (6551-8895) /uL Vernon # (Auto) (0-900) /uL Eos # (Auto) (0-450) /uL Baso # (Auto) (0-100) /uL RBC Morphology D-Dimer 917 H (<230) ng/mL ABG pH 7.42 (7.35-7.45) ABG pCO2 29.2 L (35-45) mmHg ABG pO2 42 L* (80-100) mmHg ABG HCO3 19 L (22-26) mmol/L ABG Total CO2 20 L (21-31) mmol/L ABG O2 Saturation 79 L* (95-100) % ABG Base Excess -5.0 L (-2-2) mmol/L FiO2 0.44 Sodium (137-145) mmol/L Potassium (3.4-5.1) mmol/L Chloride (98-107) mmol/L Carbon Dioxide (22-32) mmol/L BUN (7-17) mg/dL Creatinine (0.52-1.04) mg/dL Estimated GFR (>60) mL/min BUN/Creatinine Ratio (6-22) Glucose (70-100) mg/dL Hemoglobin A1c (4.0-6.0) % Lactate (0.7-2.1) mmol/L Calcium (8.4-10.2) mg/dL Ferritin (11-264) ng/mL Total Bilirubin (0.2-1.3) mg/dL AST (14-36) IU/L ALT (<35) IU/L Alkaline Phosphatase (38-126) U/L Lactate Dehydrogenase (313-618) U/L Total Creatine Kinase (30-135) U/L CK-MB (CK-2) CK-MB (CK-2) Rel Index Troponin I (0.01-0.034) ng/mL C-Reactive Protein (<1.0) mg/dL NT-Pro-B Natriuret Pep (<125) pg/mL Total Protein (6.3-8.2) g/dL Albumin (3.5-5.0) g/dL Globulin (1.7-4.1) g/dL Albumin/Globulin Ratio (1.0-2.8) Procalcitonin 2.66 H (<0.5) ng/mL Ketones (<0.27) mmol/L SARS-CoV-2 (PCR) (Negative) 09/26/20 09/26/20 09/26/20 Range/Units 11:30 11:30 11:30 WBC 12.1 H (4.5-11.0) X10^3/uL RBC 6.31 H (4.0-5.2) X10^6/uL Hgb 18.8 H (12.0-16.0) g/dL Hct 56.9 H (36-46) % MCV 90.3 (80-100) fL MCH 29.9 (26-34) PG MCHC 33.1 (30-36) % RDW 12.5 (11.6-14.8) % Plt Count 321 (150-400) X10^3/uL Neut % (Auto) 87.8 H (50-75) % Lymph % (Auto) 6.1 L (25-40) % Vernon % (Auto) 6.0 (3-14) % Eos % (Auto) 0.0 L (2-4) % Baso % (Auto) 0.1 (0-2) % Neut # (Auto) 84230 H (2546-9953) /uL Lymph # (Auto) 700 L (4159-8878) /uL Vernon # (Auto) 700 (0-900) /uL Eos # (Auto) 0 (0-450) /uL Baso # (Auto) 0 (0-100) /uL RBC Morphology Normal morphology D-Dimer (<230) ng/mL ABG pH (7.35-7.45) ABG pCO2 (35-45) mmHg ABG pO2 (80-100) mmHg ABG HCO3 (22-26) mmol/L ABG Total CO2 (21-31) mmol/L ABG O2 Saturation (95-100) % ABG Base Excess (-2-2) mmol/L FiO2 Sodium 136 L (137-145) mmol/L Potassium 5.0 (3.4-5.1) mmol/L Chloride 90 L (98-107) mmol/L Carbon Dioxide 20 L (22-32) mmol/L BUN 55 H (7-17) mg/dL Creatinine 1.28 H (0.52-1.04) mg/dL Estimated GFR 42.7 L (>60) mL/min BUN/Creatinine Ratio 43.0 H (6-22) Glucose 623 H* (70-100) mg/dL Hemoglobin A1c (4.0-6.0) % Lactate 5.9 H* (0.7-2.1) mmol/L Calcium 10.5 H (8.4-10.2) mg/dL Ferritin > 1000 H (11-264) ng/mL Total Bilirubin 1.1 (0.2-1.3) mg/dL AST 59 H (14-36) IU/L ALT 33 (<35) IU/L Alkaline Phosphatase 81 (38-126) U/L Lactate Dehydrogenase 1736 H (313-618) U/L Total Creatine Kinase 55 (30-135) U/L CK-MB (CK-2) TNP CK-MB (CK-2) Rel Index TNP Troponin I 0.016 (0.01-0.034) ng/mL C-Reactive Protein 21.7 H (<1.0) mg/dL NT-Pro-B Natriuret Pep 506 H (<125) pg/mL Total Protein 8.8 H (6.3-8.2) g/dL Albumin 4.4 (3.5-5.0) g/dL Globulin 4.4 H (1.7-4.1) g/dL Albumin/Globulin Ratio 1.0 (1.0-2.8) Procalcitonin (<0.5) ng/mL Ketones (<0.27) mmol/L SARS-CoV-2 (PCR) (Negative) 09/26/20 09/26/20 09/26/20 Range/Units 11:30 11:30 12:00 WBC (4.5-11.0) X10^3/uL RBC (4.0-5.2) X10^6/uL Hgb (12.0-16.0) g/dL Hct (36-46) % MCV (80-100) fL MCH (26-34) PG MCHC (30-36) % RDW (11.6-14.8) % Plt Count (150-400) X10^3/uL Neut % (Auto) (50-75) % Lymph % (Auto) (25-40) % Vernon % (Auto) (3-14) % Eos % (Auto) (2-4) % Baso % (Auto) (0-2) % Neut # (Auto) (2911-5522) /uL Lymph # (Auto) (4427-0114) /uL Vernon # (Auto) (0-900) /uL Eos # (Auto) (0-450) /uL Baso # (Auto) (0-100) /uL RBC Morphology D-Dimer (<230) ng/mL ABG pH (7.35-7.45) ABG pCO2 (35-45) mmHg ABG pO2 (80-100) mmHg ABG HCO3 (22-26) mmol/L ABG Total CO2 (21-31) mmol/L ABG O2 Saturation (95-100) % ABG Base Excess (-2-2) mmol/L FiO2 Sodium (137-145) mmol/L Potassium (3.4-5.1) mmol/L Chloride (98-107) mmol/L Carbon Dioxide (22-32) mmol/L BUN (7-17) mg/dL Creatinine (0.52-1.04) mg/dL Estimated GFR (>60) mL/min BUN/Creatinine Ratio (6-22) Glucose (70-100) mg/dL Hemoglobin A1c 13.5 H (4.0-6.0) % Lactate (0.7-2.1) mmol/L Calcium (8.4-10.2) mg/dL Ferritin (11-264) ng/mL Total Bilirubin (0.2-1.3) mg/dL AST (14-36) IU/L ALT (<35) IU/L Alkaline Phosphatase (38-126) U/L Lactate Dehydrogenase (313-618) U/L Total Creatine Kinase (30-135) U/L CK-MB (CK-2) CK-MB (CK-2) Rel Index Troponin I (0.01-0.034) ng/mL C-Reactive Protein (<1.0) mg/dL NT-Pro-B Natriuret Pep (<125) pg/mL Total Protein (6.3-8.2) g/dL Albumin (3.5-5.0) g/dL Globulin (1.7-4.1) g/dL Albumin/Globulin Ratio (1.0-2.8) Procalcitonin (<0.5) ng/mL Ketones 5.64 H (<0.27) mmol/L SARS-CoV-2 (PCR) Positive H (Negative) Point of Care Testing Glucose POC 376 MDM Narrative Medical decision making narrative: Patient with COVID-19 is quite ill and will require hospitalization and our ICU. I have had extensive discussion with the receiving provider and we sure the opinion on the diagnostic and treatment modalities listed. Patient requires high-flow nasal cannula at high levels and very well could progressed to requiring BiPAP. She has been clear that she does not want to be intubated edema. Questions answered to their apparent satisfaction Discharge Plan Departure Patient Disposition: Admitted As Inpatient Clinical Impression: COVID-19 Admit Date/Time: 09/26/20 13:06 Admit Provider: Florencio Saxena
[2020-09-26] MEDS: SODIUM CHLORIDE 0.9% 1,000 ML 125 ML IV (11:39)
[2020-09-26] MEDS: DEXAMETHASONE 10 MG/ML VIAL 6 MG IV (11:39)
[2020-09-26] MEDS: REMDESIVIR 200 MG in SODIUM CHLORIDE 0.9% 210 ML 250 ML IV (11:39)
--- NOTE | 2020-09-26 11:45 | PC.NURSE ---
Late Entry When patient first arrived to the ED I asked her if she would want to be intubated if she stopped breathing. Pt did not answer at that time. Her said to her You have to answer I can't make that decision for you. At that time she did not answer. At approx 1145 while attempting another IV I asked the patient again if she would want to be intubated if she needed it to help her breath. She responded with a No. I then asked her if her heart stopped would she want CPR done which she responded with NoYang Phillips in room at this time as a witness to her wishes.
[2020-09-26 11:49] LABS: Fractionated Inspired Oxygen 0.44; HCO3 ABG 19 mmol/L (22-26); Oxygen Saturation ABG 79 % (95-100); PCO2 ABG 29.2 mmHg (35-45); PO2 ABG 42 mmHg (80-100); TCO2 ABG 20 mmol/L (21-31); pH ABG 7.42 (7.35-7.45)
--- NOTE | 2020-09-26 11:52 | PC.NURSE ---
2 attempt Jacqueline and 3 attempt Jane
--- NOTE | 2020-09-26 11:55 | PC.NURSE ---
Pt dx with COVID 09/19/20
[2020-09-26 11:57] LABS: D Dimer 917 ng/mL (<230)
[2020-09-26 11:58] LABS: Albumin 4.4 g/dL (3.5-5.0); Alkaline Phosphatase 81 U/L (38-126); Aspartate Aminotransferase 59 IU/L (14-36); Basophils Absolute Auto 0 /uL (0-100); Basophils Percent Auto 0.1 % (0-2); Bilirubin Total 1.1 mg/dL (0.2-1.3); Blood Urea Nitrogen 55 mg/dL (7-17); Calcium 10.5 mg/dL (8.4-10.2); Carbon Dioxide 20 mmol/L (22-32); Chloride 90 mmol/L (98-107); Creatine Kinase 55 U/L (30-135); Eosinophils Absolute Auto 0 /uL (0-450); Estimated Glomerular Filt Rate 42.7 mL/min (>60); Globulin 4.4 g/dL (1.7-4.1); Hematocrit 56.9 % (36-46); Hemoglobin 18.8 g/dL (12.0-16.0); Lactate Dehydrogenase 1736 U/L (313-618); Lymphocytes Absolute Auto 700 /uL (1100-4500); Lymphocytes Percent Auto 6.1 % (25-40); Mean Corpuscular HGB Conc 33.1 % (30-36); Mean Corpuscular Hemoglobin 29.9 PG (26-34); Mean Corpuscular Volume 90.3 fL (80-100); Monocytes Absolute Auto 700 /uL (0-900); Neutrophils Absolute Auto 10700 /uL (1500-7000); Neutrophils Percent Auto 87.8 % (50-75); Platelet Count 321 X10^3/uL (150-400); Red Blood Cell Count 6.31 X10^6/uL (4.0-5.2); Red Cell Distribution Width 12.5 % (11.6-14.8); Sodium 136 mmol/L (137-145); Total Protein 8.8 g/dL (6.3-8.2); White Blood Cell Count 12.1 X10^3/uL (4.5-11.0)
[2020-09-26 12:00] LABS: Add Manual Diff / Slide Review SLIDE REVIEW
[2020-09-26 12:07] LABS: NT-proBNP (BNP-Adult 18+) 506 pg/mL (<125); Troponin I 0.016 ng/mL (0.01-0.034)
[2020-09-26 12:12] LABS: Procalcitonin 2.66 ng/mL (<0.5)
[2020-09-26 12:14] LABS: Lactate (Lactic Acid) 5.9 mmol/L (0.7-2.1)
[2020-09-26 12:15] LABS: HEMOLYSIS 51 (0-50)
[2020-09-26 12:16] LABS: Glucose 623 mg/dL (70-100)
[2020-09-26 12:17] LABS: C-Reactive Protein Quant 21.7 mg/dL (<1.0)
[2020-09-26 12:21] LABS: Alanine Aminotransferase 33 IU/L (<35)
[2020-09-26 12:26] LABS: RBC Morphology Normal Morphology
[2020-09-26] MEDS: SODIUM CHLORIDE 0.9% 1,000 ML 1000 ML IV ×2 (12:32→14:22)
[2020-09-26] MEDS: INSULIN REGULAR 100 UNIT/ML 3 ML VIAL 10 UNIT IV (12:32)
[2020-09-26 12:38] LABS: Ferritin > 1000 ng/mL (11-264)
[2020-09-26] MEDS: cefTRIAXone 2,000 MG in SODIUM CHLORIDE 0.9% 100 ML 200 ML IV (13:20)
[2020-09-26 13:38] LABS: COVID19 - ADMIT (NP swab/PCR) POSITIVE (Negative)
[2020-09-26 13:39] LABS: Reflexed Lactate in 2 Hours Y
[2020-09-26 13:43] LABS: Ketones (Beta-Hydroxybutyrate) 5.64 mmol/L (<0.27)
[2020-09-26 13:54] LABS: Hemoglobin A1C% w Est Avg Glu 13.5 % (4.0-6.0)
[2020-09-26] MEDS: PANTOPRAZOLE 40 MG VIAL IV (14:13)
[2020-09-26] MEDS: AZITHROMYCIN 500 MG in DEXTROSE 5% IN WATER 250 ML IV (14:15)
[2020-09-26] MEDS: INSULIN DRIP PREMIX 100 UNIT/100 ML PLAST..BAG 6 UNIT IV (14:15)
[2020-09-26 14:38] LABS: HCO3 ABG 22 mmol/L (22-26); PCO2 ABG 32.7 mmHg (35-45); PO2 ABG 62 mmHg (80-100); pH ABG 7.44 (7.35-7.45)
[2020-09-26 14:39] LABS: Fractionated Inspired Oxygen 90; Oxygen Saturation ABG 92 % (95-100); TCO2 ABG 23 mmol/L (21-31)
--- NOTE | 2020-09-26 15:34 | PC.NURSE ---
PT ADMITTED TO ROOM 231 FROM ED- COVID + AND VERY ILL, LUNGS COARSE BILAT WITH WEAK MOIST COUGH UNABLE TO PRODUCE SPEC- [employer]ACED AND URINE SPEC SENT HAVE MRSA SWAB REPEAT LACTATE PENDING WELL - INSULIN GTT STARTED AND PRESENTLY ON 60l/90% FIO2 -
[2020-09-26] MEDS: FLUCONAZOLE 150 MG TABLET PO (15:38)
[2020-09-26 15:39] LABS: BUN Creatinine Ratio 44.2 (6-22); Blood Urea Nitrogen 46 mg/dL (7-17); Calcium 8.5 mg/dL (8.4-10.2); Carbon Dioxide 23 mmol/L (22-32); Chloride 103 mmol/L (98-107); Estimated Glomerular Filt Rate 54.2 mL/min (>60); Glucose 449 mg/dL (70-100); HEMOLYSIS < 15 (0-50); Potassium 3.6 mmol/L (3.4-5.1); Sodium 142 mmol/L (137-145)
[2020-09-26 15:46] LABS: Lactate (Lactic Acid) 5.7 mmol/L (0.7-2.1)
[2020-09-26 15:46] LABS: Bilirubin Urine UA NEGATIVE (NEGATIVE); Color Urine UA YELLOW; Glucose Urine UA 2+ g/dL (Negative); Ketones Urine UA 1+ (NEGATIVE); Leukocyte Esterase Urine UA NEGATIVE (NEGATIVE); Nitrite Urine UA NEGATIVE (Negative); Occult Blood Urine UA 2+ (Negative); Protein Urine UA 2+ (Negative); Specific Gravity Urine UA 1.015 (1.000-1.035); Urobilinogen Urine UA 0.2 E.U./dL (0.2)
[2020-09-26 15:58] LABS: Amorphous Sediment Urine 1+; Appearance Urine UA Slightly Cloudy; Bacteria Urine Moderate (10-30); Granular Casts Urine 1-5/LPF; Mucus Urine 1+ (Negative); RBC Urine 1-5/HPF (0-5/HPF); Squamous Epithelial Cell Urine 1-5 /HPF (0-5/HPF); WBC Urine 5-10/HPF (0-5/HPF)
[2020-09-26 15:59] LABS: Culture Indicated Urine Specimen Cultured
[2020-09-26] MEDS: POTASSIUM CHLORIDE 40 MEQ in SODIUM CHLORIDE 0.9% 1,000 ML 200 MEQ IV (16:16)
--- NOTE | 2020-09-26 16:35 | PM.HP.1 ---
History of Present Illness History of Present Illness Date Patient Seen: 09/26/20 Time Patient Seen: 14:00 Chief complaint: covid+ Narrative: Ms Clark is a 60W with PMH of DM, HTN who does not regularly see doctors. She is coming in with headache, sore throat, fatigue, decreased appetite, nausea. She initially developed symptoms on 09/15 and was tested for COVID on 09/17 and was positive for COVID. She has since become worse and very weak and because of this came in to the hospital. She has not been vaccinated for COVID. She has been coughing up phlegm. She denies chest pain. In the ED workup was done she was noted to have T 99.7, HR in 110s-120s, RR in 30s, blood pressure 140s/80s, initial sat was 78% on room air. She was placed immediately on oxygen with nasal cannula, then on nonrebreather and still hypoxemic so was placed on high flow oxygen. ABG before being placed on high flow showed pH 7.42, pO2 42, hco3 19. Labs were done which showed WBC 12.1, Hgb 18.8, Na 136, Cl 90, Co2 20, BUN 55, creatinine 1.28, glucose 623. D-dimer 917. Procalcitonin 2.66. Lactate 5.9. LDH 1736, CRP 21.7, procalcitonin 2.66. UA with 5-10 WBC, moderate bacteria. Ketones 5.64. MRSA negative. COVID positive. Chest xray showed pneumonia. She was ordered for remdesivir and dexamethasone. She was ordered for IV insulin. She was ordered for IV fluid boluses. When I saw her she was in moderate respiratory distress and had difficulty speaking full sentences. She was admitted for further treatment. Family history was asked of patient but she denied significant medical issues in the family. Patient History Surgical History History of tonsillectomy and adenoidectomy Status post tubal ligation (05/12/94) Family & Social History Social History: household members spouse,family Prior Living Arrangements Apartment/Condo other Former smoker, does not drink alcohol or use any drugs Safety & Behavioral: Feels Safe in Current Yes Environment Been Physically Hurt or No Threatened By a Person Suicidal Ideation Description None Suicide Plan Description No Plan Tobacco & Substance use: Smoking Status Former smoker alcohol intake frequency 0-2 drinks per day Substance Use Type does not use Meds Home Medications and Allergies Home Medications Medication Instructions Recorded Confirmed Type No Known Home Medications 09/26/20 09/26/20 History Allergies Allergy/AdvReac Type Severity Reaction Status Date / Time No Known Drug Allergies Allergy Verified 09/26/20 11:47 Review of Systems Review of Systems Narrative: 14 systems reviewed and negative aside from what is noted in HPI. She denied any pain. No abdominal pain, no diarrhea. Exam Vital Signs (past 8 hours): - 09/26/20 11:00 09/26/20 11:13 09/26/20 11:30 Temperature 99.7 F H Pulse Rate 119 H 118 H 118 H Respiratory Rate 30 H Blood Pressure 149/84 H 149/84 H 161/82 H Pulse Oximetry 78 L 71 L 82 L 09/26/20 11:44 09/26/20 12:00 09/26/20 12:30 Temperature Pulse Rate 120 H 116 H 113 H Respiratory Rate 22 34 H 37 H Blood Pressure 161/82 H 153/87 H 178/88 H Pulse Oximetry 87 L 94 93 09/26/20 12:40 09/26/20 12:47 09/26/20 13:00 Temperature 100.1 F H 98.2 F Pulse Rate 107 H 111 H Respiratory Rate 31 H 39 H Blood Pressure 178/88 H 155/82 H Pulse Oximetry 93 90 L 09/26/20 13:30 09/26/20 13:48 09/26/20 14:10 Temperature 98.2 F Pulse Rate 111 H 111 H 110 H Respiratory Rate 35 H 39 H 33 H Blood Pressure 146/91 H 155/82 H 155/82 H Pulse Oximetry 93 90 L 94 09/26/20 14:58 09/26/20 15:00 09/26/20 15:30 Temperature Pulse Rate 134 H 117 H 138 H Respiratory Rate 37 H 41 H 50 H Blood Pressure 134/88 Pulse Oximetry 90 L 88 L 74 L 09/26/20 16:00 09/26/20 16:07 09/26/20 16:30 Temperature Pulse Rate 116 H 116 H 114 H Respiratory Rate 43 H 31 H 41 H Blood Pressure 142/79 H 142/79 H 128/92 H Pulse Oximetry 91 91 88 L Fraction of Inspired Oxygen 90 Oxygen Delivery Method Heated High Flow Oxygen Flow Rate 60 Narrative Exam Narrative: GEN: fatigued, significant respiratory distress HEENT: PERRL, dry mucous membranes CV: tachycardic, with no murmurs PULM: coarse diminished breath sounds bilaterally, tachypneic, increased work of breathing ABD: soft, nontender, nondistended, no organomegaly, normal bowel sounds EXT: warm and well perfused with no edema SKIN: rash noted in skin folds NEURO: conversant, answering questions appropriately, very fatigued, moving all extremities PSYCH: cooperative Objective Labs Result Diagrams: 09/26/20 11:30 09/26/20 15:18 Labs: Laboratory Results - last 24 hr 09/26/20 09/26/20 09/26/20 11:26 11:30 11:30 WBC RBC Hgb Hct MCV MCH MCHC RDW Plt Count Neut % (Auto) Lymph % (Auto) Douglas % (Auto) Eos % (Auto) Baso % (Auto) Neut # (Auto) Lymph # (Auto) Douglas # (Auto) Eos # (Auto) Baso # (Auto) RBC Morphology D-Dimer 917 H ABG pH 7.42 ABG pCO2 29.2 L ABG pO2 42 L* ABG HCO3 19 L ABG Total CO2 20 L ABG O2 Saturation 79 L* ABG Base Excess -5.0 L FiO2 0.44 Sodium Potassium Chloride Carbon Dioxide BUN Creatinine Estimated GFR BUN/Creatinine Ratio Glucose Hemoglobin A1c Lactate Calcium Ferritin Total Bilirubin AST ALT Alkaline Phosphatase Lactate Dehydrogenase Total Creatine Kinase CK-MB (CK-2) CK-MB (CK-2) Rel Index Troponin I C-Reactive Protein NT-Pro-B Natriuret Pep Total Protein Albumin Globulin Albumin/Globulin Ratio Procalcitonin 2.66 H Urine Color Urine Appearance Urine pH Ur Specific [place] Urine Protein Urine Glucose (UA) Urine Ketones Urine Occult Blood Urine Nitrate Urine Bilirubin Urine Urobilinogen Ur Leukocyte Esterase Urine RBC Urine WBC Ur Squamous Epith Cells Amorphous Sediment Urine Bacteria Granular Casts Urine Mucus Urine Yeast Ur Culture Indicated? Ketones SARS-CoV-2 (PCR) 09/26/20 09/26/20 09/26/20 11:30 11:30 11:30 WBC 12.1 H RBC 6.31 H Hgb 18.8 H Hct 56.9 H MCV 90.3 MCH 29.9 MCHC 33.1 RDW 12.5 Plt Count 321 Neut % (Auto) 87.8 H Lymph % (Auto) 6.1 L Douglas % (Auto) 6.0 Eos % (Auto) 0.0 L Baso % (Auto) 0.1 Neut # (Auto) 51517 H Lymph # (Auto) 700 L Douglas # (Auto) 700 Eos # (Auto) 0 Baso # (Auto) 0 RBC Morphology Normal morphology D-Dimer ABG pH ABG pCO2 ABG pO2 ABG HCO3 ABG Total CO2 ABG O2 Saturation ABG Base Excess FiO2 Sodium 136 L Potassium 5.0 Chloride 90 L Carbon Dioxide 20 L BUN 55 H Creatinine 1.28 H Estimated GFR 42.7 L BUN/Creatinine Ratio 43.0 H Glucose 623 H* Hemoglobin A1c Lactate 5.9 H* Calcium 10.5 H Ferritin > 1000 H Total Bilirubin 1.1 AST 59 H ALT 33 Alkaline Phosphatase 81 Lactate Dehydrogenase 1736 H Total Creatine Kinase 55 CK-MB (CK-2) TNP CK-MB (CK-2) Rel Index TNP Troponin I 0.016 C-Reactive Protein 21.7 H NT-Pro-B Natriuret Pep 506 H Total Protein 8.8 H Albumin 4.4 Globulin 4.4 H Albumin/Globulin Ratio 1.0 Procalcitonin Urine Color Urine Appearance Urine pH Ur Specific [place] Urine Protein Urine Glucose (UA) Urine Ketones Urine Occult Blood Urine Nitrate Urine Bilirubin Urine Urobilinogen Ur Leukocyte Esterase Urine RBC Urine WBC Ur Squamous Epith Cells Amorphous Sediment Urine Bacteria Granular Casts Urine Mucus Urine Yeast Ur Culture Indicated? Ketones SARS-CoV-2 (PCR) 09/26/20 09/26/20 09/26/20 11:30 11:30 12:00 WBC RBC Hgb Hct MCV MCH MCHC RDW Plt Count Neut % (Auto) Lymph % (Auto) Douglas % (Auto) Eos % (Auto) Baso % (Auto) Neut # (Auto) Lymph # (Auto) Douglas # (Auto) Eos # (Auto) Baso # (Auto) RBC Morphology D-Dimer ABG pH ABG pCO2 ABG pO2 ABG HCO3 ABG Total CO2 ABG O2 Saturation ABG Base Excess FiO2 Sodium Potassium Chloride Carbon Dioxide BUN Creatinine Estimated GFR BUN/Creatinine Ratio Glucose Hemoglobin A1c 13.5 H Lactate Calcium Ferritin Total Bilirubin AST ALT Alkaline Phosphatase Lactate Dehydrogenase Total Creatine Kinase CK-MB (CK-2) CK-MB (CK-2) Rel Index Troponin I C-Reactive Protein NT-Pro-B Natriuret Pep Total Protein Albumin Globulin Albumin/Globulin Ratio Procalcitonin Urine Color Urine Appearance Urine pH Ur Specific [place] Urine Protein Urine Glucose (UA) Urine Ketones Urine Occult Blood Urine Nitrate Urine Bilirubin Urine Urobilinogen Ur Leukocyte Esterase Urine RBC Urine WBC Ur Squamous Epith Cells Amorphous Sediment Urine Bacteria Granular Casts Urine Mucus Urine Yeast Ur Culture Indicated? Ketones 5.64 H SARS-CoV-2 (PCR) Positive H 09/26/20 09/26/20 09/26/20 14:11 14:15 15:18 WBC RBC Hgb Hct MCV MCH MCHC RDW Plt Count Neut % (Auto) Lymph % (Auto) Douglas % (Auto) Eos % (Auto) Baso % (Auto) Neut # (Auto) Lymph # (Auto) Douglas # (Auto) Eos # (Auto) Baso # (Auto) RBC Morphology D-Dimer ABG pH 7.44 ABG pCO2 32.7 L ABG pO2 62 L ABG HCO3 22 ABG Total CO2 23 ABG O2 Saturation 92 L ABG Base Excess -2.0 FiO2 90 Sodium 142 Potassium 3.6 D Chloride 103 Carbon Dioxide 23 BUN 46 H Creatinine 1.04 Estimated GFR 54.2 L BUN/Creatinine Ratio 44.2 H Glucose 449 H D Hemoglobin A1c Lactate Calcium 8.5 Ferritin Total Bilirubin AST ALT Alkaline Phosphatase Lactate Dehydrogenase Total Creatine Kinase CK-MB (CK-2) CK-MB (CK-2) Rel Index Troponin I C-Reactive Protein NT-Pro-B Natriuret Pep Total Protein Albumin Globulin Albumin/Globulin Ratio Procalcitonin Urine Color Yellow Urine Appearance Slightly cloudy Urine pH 5.0 Ur Specific [place] 1.015 Urine Protein 2+ H Urine Glucose (UA) 2+ H Urine Ketones 1+ H Urine Occult Blood 2+ H Urine Nitrate Negative Urine Bilirubin Negative Urine Urobilinogen 0.2 Ur Leukocyte Esterase Negative Urine RBC 1-5/hpf Urine WBC 5-10/hpf H Ur Squamous Epith Cells 1-5 /hpf Amorphous Sediment 1+ Urine Bacteria Moderate (10-30) H Granular Casts 1-5/lpf Urine Mucus 1+ H Urine Yeast 5-10/hpf H Ur Culture Indicated? Specimen cultured Ketones SARS-CoV-2 (PCR) 09/26/20 15:18 WBC RBC Hgb Hct MCV MCH MCHC RDW Plt Count Neut % (Auto) Lymph % (Auto) Douglas % (Auto) Eos % (Auto) Baso % (Auto) Neut # (Auto) Lymph # (Auto) Douglas # (Auto) Eos # (Auto) Baso # (Auto) RBC Morphology D-Dimer ABG pH ABG pCO2 ABG pO2 ABG HCO3 ABG Total CO2 ABG O2 Saturation ABG Base Excess FiO2 Sodium Potassium Chloride Carbon Dioxide BUN Creatinine Estimated GFR BUN/Creatinine Ratio Glucose Hemoglobin A1c Lactate 5.7 H* Calcium Ferritin Total Bilirubin AST ALT Alkaline Phosphatase Lactate Dehydrogenase Total Creatine Kinase CK-MB (CK-2) CK-MB (CK-2) Rel Index Troponin I C-Reactive Protein NT-Pro-B Natriuret Pep Total Protein Albumin Globulin Albumin/Globulin Ratio Procalcitonin Urine Color Urine Appearance Urine pH Ur Specific [place] Urine Protein Urine Glucose (UA) Urine Ketones Urine Occult Blood Urine Nitrate Urine Bilirubin Urine Urobilinogen Ur Leukocyte Esterase Urine RBC Urine WBC Ur Squamous Epith Cells Amorphous Sediment Urine Bacteria Granular Casts Urine Mucus Urine Yeast Ur Culture Indicated? Ketones SARS-CoV-2 (PCR) Assessment & Plan Assessment & Plan narrative: Ms. Clark is a 60W with DM, HTN who presents with severe shortness of breath and hypoxemia found to have COVID pneumonia. 1. Acute respiratory failure secondary to COVID pneumonia with sepsis -on arrival to ED patient very hypoxemic and placed on high flow at 50L and 90% FiO2, once in ICU had to keep increasing oxygen requirements due to continue hypoxemia -she discussed with ED physician and confirmed she is DNR/DNI, I subsequently went in to patient's and she confirmed she is DNR/DNI. I told her plainly that she is near maximum oxygen capacity and she may possibly today given how sick she is, and discussed intubation as a possibility if we can not keep her oxygen levels appropriate on high flow. She confirmed what she told ED physician that she did not want to be intubated even in the event she may today. I did call her and let him know she was critically ill and that she had made it clear she did not want to be intubated. -in the ED she was started on remdesivir and dexamethasone which will be continued -give severity of presentation empirically covered for bacterial process, though likelihood is lower, but will continue coverage with meropenem, of note UA has positive WBC and moderate bacteria so could treat possible UTI as well -given severity of presentation will empirically treat for PE given clear inflammatory response, and patient is very unstable and unsafe for CT currently given oxygen requirements, will treat with lovenox BID -with high fever, high lactate of 5.9, high crp, ferritin, ldh all portend very poor prognosis -patient a1c >13, and she has suresh in skin folds indicating likely poor immune system that contributed to this severity of infection -trend inflammatory markers daily, frequent lactates -meets sepsis criteria with SOFA score of 3 and organ dysfunction with JANET, and respiratory failure 2. Uncontrolled Type 2 Diabetes, with hyperglycemia and probable DKA -she came in with blood sugar in 600s, she had an elevated anion gap, ketones in urine, her bicarb and pH were normal -she has been ordered IV fluid boluses, she has been placed on IV insulin per DKA protocol as steroids will likely worsen her symptoms -will replete potassium as needed per protocol -PICC ordered for frequent labs and IV fluids 3. JANET -secondary to hypovolemia -hypovolemia evidenced by elevated hemoglobin, dry membranes, and prerenal etiology of JANET -owen placed for accurate urine output 4. HTN -no need for antihypertensives now given sepsis and severe disease Code: DNR/DNI, as noted above patient was aware that she may today from her critical illness and was near our max capacity of supplying oxygen, she made clear to me that if she were to worsen and was not able to be maintain appropriate oxygen levels, she would want to be made comfortable and pass away and peacefully rather than be intubated and have CPR done. This has been discussed with her who verbalized to me that we should honor her wishes. This has been confirmed with ED physician who separately confirmed the patient is DNR/DNI. DVT ppx: Lovenox full dose I have utilized all available immediate resources to obtain, update, or review the patient's current medications.
[2020-09-26 17:22] LABS: Reflexed Lactate in 2 Hours Y
--- NOTE | 2020-09-26 17:22 | RT ---
DR. BOYCE NOTIFIED OF CURRENT PT STATUS, INCLUDING [facility] SETTINGS AND RR.
--- NOTE | 2020-09-26 17:35 | PC.NURSE ---
LATE ENTRY: 1145: Patient made wishes for no intubation or CPR if she were to stop breathing or heart were to stop beating.
--- NOTE | 2020-09-26 18:33 | PC.NURSE ---
Addendum entered by Lore Pugh R.N. 09/26/20 21:54: 2130- Technical [employer] Director here to see patient and family. remains at bedside. Saturations on 14l high flow ranging from 75 to 82%. Patient appears comfortable. Will monitor. Original Note: 1700- Picc line placed and verification completed by Picc RN Irene Fowler. IV infusing at 200/hr .9NS with 40MEQ potassium. Patient on maximum support with Heated High Flow 60 liters 100%. Respirations are labored and patient is no longer responding verbally. Dr. Saxena aware await orders. 1800- Patient conference with family over the phone. is on the way in to be with patient. Patient to be transitioned to comfort care as she was clear earlier that she did not want to be intubated. Insulin gtt paused. 1840- here and at bedside. Dr. Saxena had a discussion again about the plan of care. Will proceed with comfort measures.
[2020-09-26] MEDS: MORPHINE 2 MG/ML INJ 4 MG IV (18:54)
[2020-09-27 00:36] VITALS: O2SAT 81
--- NOTE | 2020-09-27 02:55 | PC.NURSE ---
Patient is mostly non responsive. Did open eyes slightly and nodded when asked if she was comfortable and stated no when asked if she was having any pain. Breath sounds diminished throughout and is currently on oxygen at 14L/min per [facility] with sat of 81%; on continuous oximetry. HRR but tachy at 109 bpm. BT hypoactive and abdomen is soft. Indwelling catheter is patent; urine is clear, light sebastian. Repositioned onto left side and HOB elevated. Wearing bilateral calf SCD's. Maintained on isolation due to COVID positive status. Spouse rooming in.
[2020-09-27 03:37] VITALS: O2SAT 82
[2020-09-27 08:05] VITALS: BP 119/67; PULSE 115; RESP 16; TEMP 36.2; O2SAT 80
--- NOTE | 2020-09-27 09:17 | CM.DANOTE ---
Discharge Planning/Care Management DCP: assessment: case received, EMR reviewed. Transition last night to end of life symptom management is noted. Pt is expected to likely in the hospital. MIKE Waggoner reports pt's spouse Stephan, also COVID +, has been at bedside. Has just left and will return soon. Hospital Cna did see pt and her last night. MIKE Waggoner will check with Stephan today re arrangements for pt's body after . Payer: COVID 19 [employer] Pt is a 60 year old female who admitted to care of hospitalist team yesterday afternoon. ARF secondary to COVID + pneumonia. Tested + on 09/17 and has worsened. Unvaccinated COVID status. Pt has expressed her wishes for POC going forward and her spouse as well as care team members are honoring same. Will follow prn CM Discharge Assessment Start: 09/27/20 09:16 Freq: Status: Active Protocol: Document 09/27/20 09:16 ITV (Rec: 09/27/20 09:17 ITV [id number]) Discharge Planning Assessment Advance Directives? No History Provided By Patient,Medical Record Has Patient been admitted in last 30 No days? Prior Living Arrangements Apartment/Condo Household Members spouse,family Independent with ADL's Yes Is patient alert and oriented? Yes Discharge Plan Pt expected to in Hospital Review Status In Process
[2020-09-27] MEDS: PANTOPRAZOLE 40 MG VIAL IV (10:52)
[2020-09-27] MEDS: SODIUM CHLORIDE 0.9% FLUSH 10 ML IV (10:53)
[2020-09-27] MEDS: LORazepam 2 MG/ML INJ 1 MG IV ×2 (10:54→12:50)
[2020-09-27] MEDS: MORPHINE 2 MG/ML INJ 4 MG IV ×2 (10:55→12:45)
--- NOTE | 2020-09-27 14:00 | PM.DDS.1 ---
Discharge Summary History of Illness Narrative: Per Dr. Saxena, Ms Clark is a 60W with PMH of DM, HTN who does not regularly see doctors. She is coming in with headache, sore throat, fatigue, decreased appetite, nausea. She initially developed symptoms on 09/15 and was tested for COVID on 09/17 and was positive for COVID. She has since become worse and very weak and because of this came in to the hospital. She has not been vaccinated for COVID. She has been coughing up phlegm. She denies chest pain. In the ED workup was done she was noted to have T 99.7, HR in 110s-120s, RR in 30s, blood pressure 140s/80s, initial sat was 78% on room air. She was placed immediately on oxygen with nasal cannula, then on nonrebreather and still hypoxemic so was placed on high flow oxygen. ABG before being placed on high flow showed pH 7.42, pO2 42, hco3 19. Labs were done which showed WBC 12.1, Hgb 18.8, Na 136, Cl 90, Co2 20, BUN 55, creatinine 1.28, glucose 623. D-dimer 917. Procalcitonin 2.66. Lactate 5.9. LDH 1736, CRP 21.7, procalcitonin 2.66. UA with 5-10 WBC, moderate bacteria. Ketones 5.64. MRSA negative. COVID positive. Chest xray showed pneumonia. She was ordered for remdesivir and dexamethasone. She was ordered for IV insulin. She was ordered for IV fluid boluses. When I saw her she was in moderate respiratory distress and had difficulty speaking full sentences. She was admitted for further treatment. Family history was asked of patient but she denied significant medical issues in the family. Hospital Course Date of Admission: 09/26/20 13:06 Consults: 09/26/20 18:39 Consult to Discharge Planning Routine Comment: Consult to Hospice Referral Urgent Comment: Discharge provider: Sandor Kelly DO Discharge Diagnosis: 1. Acute respiratory failure secondary to COVID pneumonia with sepsis 2. Uncontrolled Type 2 Diabetes, with hyperglycemia and probable DKA or lactic acidosis 3. JANET 4. HTN Hospital Course: This was a 60-year-old female with a past medical history of hypertension and uncontrolled type 2 diabetes who was admitted with acute respiratory failure secondary to COVID-19 pneumonia and corresponding sepsis. Shortly after admission she had maxed out her oxygen requirements and after goals of care discussion the patient was adamant that she was DNR/DNI. She made clear that if she had an inability to maintain appropriate oxygenation level she would want to be made comfortable. Given her severity of presentation she was empirically covered for a bacterial process, and ultimately only a group a strep grew in her urine. She was also noted to have an A1c of 13.5 indicating the severity of her uncontrolled diabetes as well as an JANET the setting of dehydration and possible diabetic ketoacidosis (though acidosis likely secondary to lactic acid elevation in setting of severe infection). Shortly after admission she was not responding to maximal oxygen therapy, and in line with the patient's wishes she was made comfortable. Once adequate medication was provided the patient's oxygen was weaned, and the patient shortly afterwards at 13:15 on 09/27/20. Objective Labs Result Diagrams: 09/26/20 11:30 09/26/20 15:18 Labs: Laboratory Results - last 24 hr 09/26/20 09/26/20 09/26/20 11:30 14:11 14:15 ABG pH 7.44 ABG pCO2 32.7 L ABG pO2 62 L ABG HCO3 22 ABG Total CO2 23 ABG O2 Saturation 92 L ABG Base Excess -2.0 FiO2 90 Sodium Potassium Chloride Carbon Dioxide BUN Creatinine Estimated GFR BUN/Creatinine Ratio Glucose Hemoglobin A1c 13.5 H Lactate Calcium Urine Color Yellow Urine Appearance Slightly cloudy Urine pH 5.0 Ur Specific [place] 1.015 Urine Protein 2+ H Urine Glucose (UA) 2+ H Urine Ketones 1+ H Urine Occult Blood 2+ H Urine Nitrate Negative Urine Bilirubin Negative Urine Urobilinogen 0.2 Ur Leukocyte Esterase Negative Urine RBC 1-5/hpf Urine WBC 5-10/hpf H Ur Squamous Epith Cells 1-5 /hpf Amorphous Sediment 1+ Urine Bacteria Moderate (10-30) H Granular Casts 1-5/lpf Urine Mucus 1+ H Urine Yeast 5-10/hpf H Ur Culture Indicated? Specimen cultured Nasal Screen MRSA (PCR) 09/26/20 09/26/20 09/26/20 14:24 15:18 15:18 ABG pH ABG pCO2 ABG pO2 ABG HCO3 ABG Total CO2 ABG O2 Saturation ABG Base Excess FiO2 Sodium 142 Potassium 3.6 D Chloride 103 Carbon Dioxide 23 BUN 46 H Creatinine 1.04 Estimated GFR 54.2 L BUN/Creatinine Ratio 44.2 H Glucose 449 H D Hemoglobin A1c Lactate 5.7 H* Calcium 8.5 Urine Color Urine Appearance Urine pH Ur Specific [place] Urine Protein Urine Glucose (UA) Urine Ketones Urine Occult Blood Urine Nitrate Urine Bilirubin Urine Urobilinogen Ur Leukocyte Esterase Urine RBC Urine WBC Ur Squamous Epith Cells Amorphous Sediment Urine Bacteria Granular Casts Urine Mucus Urine Yeast Ur Culture Indicated? Nasal Screen MRSA (PCR) Negative for mrsa
--- NOTE | 2020-09-27 14:22 | PC.NURSE ---
Addendum entered by Rosaline Purdy R.N. 09/27/20 14:27: PRIOR TO PTS DEMISE, PATTI ( PTS SPOUSE) WAS COMPLAINT WITH PPE DONNING AND DOFFING - SEEMED TO UNDERSTAND THE PROTOCOL OF VISITING HIS AND WAS VERY THANKFUL FOR ALL CARE GIVEN Original Note: pt became asystolic and without respirations at 1315- , PATTI was at bedside and was understanding and accepting of situation. pt was minimally responsive at beginning of shift- able to indicate if she was uncomfortable or not- or too warm/cold-
== END 2020-09-27 13:15 | disposition expired | DRG 871 ==
LOC: ED 11:51 → AC 13:08 → ICU 14:05
PROVIDERS: Admitting Provider Internal Medicine; Emergency Provider Emergency Medicine; Referring Provider Emergency Medicine; Visit Provider Internal Medicine
DX: A41.89 Other specified sepsis (principal); E10.10 Type 1 diabetes mellitus with ketoacidosis without coma; U07.1 COVID-19; J12.82 Pneumonia due to coronavirus disease 2019; J96.01 Acute respiratory failure with hypoxia; N17.9 Acute kidney failure, unspecified; E87.2 Acidosis; B37.2 Candidiasis of skin and nail; R65.20 Severe sepsis without septic shock; I10 Essential (primary) hypertension; Z66 Do not resuscitate; Z87.891 Personal history of nicotine dependence; E86.0 Dehydration
CPT/HCPCS: 36415; 36569; 36600; 71045; 80048; 80053; 81001; 82009; 82550; 82728; 82805; 82962; 83036; 83605; 83615; 83880; 84145; 84484; 85025; 85379; 86140; 87040; 87077; 87086; 87147; 87186; 87635; 87797; 93005; 94762; 96365; 96366; 96375; 99285; 99291; 99292; C9803; C9113; J0696; J1100; J1642; J2060; J2270; J3480